=== PATIENT | female | born 1940 | race Caucasian/White ===

== ENCOUNTER 2017-04-15 16:47 | Inpatient (IN) | payer MEDICAID, OTHER ==
[2017-04-15] VITALS (9 sets, daily range): BP systolic 99–115; BP diastolic 54–63; PULSE 92–109; RESP 18–36; TEMP 98.1–98.9; O2SAT 78–100
[~2017-04-15] VITALS: Ht 152.4 cm; Wt 40.9 kg
[2017-04-15] MEDS ORDERED: methylPREDNISolone SOD SUCC 125 MG/2 ML VIAL IV PUSH ONE (17:00)
[2017-04-15] MEDS: RESP: ALBUTEROL 2.5 MG/IPRATROPIUM 0.5 MG NEB (SCH) INH ×2 (17:07→21:00)
[2017-04-15 17:31] LABS: AUTOMATED NEUTROPHIL # 13.2 TH/MM3 (1.8-7.7); BASOPHIL % 0.1 % (0.0-2.0); HEMATOCRIT 39.2 % (35.0-46.0); HEMO FLAGS DIFF FINAL; LYMPH % 2.4 % (9.0-44.0); LYMPHOCYTE # 0.3 TH/MM3 (1.0-4.8); MEAN CELL VOLUME 96.3 FL (80.0-100.0); MEAN CORPUSCULAR HEMOGLOBIN 31.5 PG (27.0-34.0); MEAN CORPUSCULAR HGB CONC 32.7 % (32.0-36.0); MONO % 2.2 % (0.0-8.0); NEUT % 95.3 % (16.0-70.0); PLATELET COUNT 129 TH/MM3 (150-450); RED BLOOD COUNT 4.07 MIL/MM3 (4.00-5.30); RED CELL DISTRIBUTION WIDTH 13.7 % (11.6-17.2); WHITE BLOOD COUNT 13.9 TH/MM3 (4.0-11.0)
--- NOTE | 2017-04-15 17:48 | PD ---
HPI Chief Complaint: Respiratory Symptoms Time Seen by Provider: 17:25 Travel History International Travel<30 days: No Contact w/Intl Traveler<30days: No Traveled to known affect area: No History of Present Illness HPI 76-year-old female presents to the emergency department for evaluation of acute onset shortness of breath. Patient was discharged from [facility] today. She was admitted to [facility] for treatment for pneumonia. While driving home from the hospital patient became very short of breath. Patient was on her usual continuous oxygen at 2 L during the sudden onset of dyspnea. Upon arrival to the emergency department patient needed help to be removed from the back seat of the vehicle. Patient was rushed into a medical room for expedited treatment. Patient is Trinidadian speaking. Another Trinidadian speaking health plant health care technician was used as an b2b sales manager. Patient has history of pulmonary fibrosis and is on 2 L of oxygen continuously. PFSH Past Medical History Cardiovascular Problems: Yes Diminished Hearing: No Gastrointestinal Disorders: Yes (GASTRITIS) Hypertension: Yes Respiratory: Yes (PULMONARY FIBROSIS) Pneumonia: Yes Past Surgical History Surgical History: No Previous Surgery Social History Alcohol Use: No Tobacco Use: No Substance Use: No Allergies-Medications (Allergen,Severity, Reaction): Coded Allergies: Iodinated Contrast- Oral and IV Dye (Verified Allergy, Unknown, 04/15/17) Reported Meds & Prescriptions Reported Meds & Active Scripts Active Reported Mycophenolate (Mycophenolate Mofetil) 500 Mg Tab 500 Mg PO BID Amlodipine (Amlodipine Besylate) 5 Mg Tab 5 Mg PO DAILY Prednisone 20 Mg Tab 40 Mg PO DAILY Take 40 mg (2 tablets) daily for 5 days Mirtazapine 15 Mg Tab 15 Mg PO HS Mucus Relief ER (Guaifenesin) 600 Mg Tab 600 Mg PO BID Acetazolamide 250 Mg Tab 250 Mg PO DAILY Percocet (Oxycodone-Acetaminophen) 5-325 mg Tab 1 Tab PO Q6H PRN Omeprazole 40 Mg Cap 40 Mg PO BID Review of Systems ROS Limitations: Language Barrier Except as stated in HPI: all other systems reviewed are Neg Physical Exam Narrative GENERAL: Ill appearing 76 year old female with ashen skin and labored breathing. Patient able to speak, but she is Trinidadian-speaking. Another healthcare professional was utilized as an b2b sales manager. SKIN: Focused skin assessment cool/dry. HEAD: Atraumatic. Normocephalic. EYES: Pupils equal and round. No scleral icterus. No injection or drainage. ENT: No nasal bleeding or discharge. Mucous membranes pink and moist. NECK: Trachea midline. No JVD. CARDIOVASCULAR: Regular rate and rhythm. No murmur appreciated. RESPIRATORY: Accessory muscle use noted. Course lung sounds throughout bilateral lobes noted. Breath sounds equal bilaterally. GASTROINTESTINAL: Abdomen soft, non-tender, nondistended. Hepatic and splenic margins not palpable. MUSCULOSKELETAL: No obvious deformities. No clubbing. No cyanosis. No edema. NEUROLOGICAL: Awake and alert. No obvious cranial nerve deficits. Motor grossly within normal limits. Normal speech. Data Data Last Documented VS Vital Signs Date Time Temp Pulse Resp B/P (MAP) Pulse Ox O2 Delivery O2 Flow Rate FiO2 04/15/17 19:28 102 18 105/58 (74) 97 Nasal Cannula 2.00 04/15/17 16:50 98.9 Orders Orders Complete Blood Count With Diff (04/15/17 16:49) Basic Metabolic Panel (Bmp) (04/15/17 16:49) Act Partial Throm Time (Ptt) (04/15/17 16:49) Prothrombin Time / Inr (Pt) (04/15/17 16:49) Magnesium (Mg) (04/15/17 16:49) Ckmb (Isoenzyme) Profile (04/15/17 16:49) Troponin I (04/15/17 16:49) Urinalysis - C+S If Indicated (04/15/17 16:49) Blood Culture (04/15/17 16:49) Iv Access Insert/Monitor (04/15/17 16:49) Electrocardiogram (04/15/17 16:49) Ecg Monitoring (04/15/17 16:49) Oximetry (04/15/17 16:49) Oxygen Administration (04/15/17 16:49) Chest, Single Ap (04/15/17 16:49) Methylprednisolone So Succ Inj (Solumedr (04/15/17 17:00) Albuterol-Ipratropium Neb (Duoneb Neb) (04/15/17 17:00) Lactic Acid (04/15/17 16:51) Arterial Blood Gas (Abg) (04/15/17 ) Hepatic Functional Panel (04/15/17 17:05) Lipase (04/15/17 17:05) Cefepime Inj (Maxipime Inj) (04/15/17 18:30) Azithromycin Inj (Zithromax Inj) (04/15/17 18:30) Admit Order (Ed Use Only) (04/15/17 19:55) Labs Laboratory Tests Test 04/15/17 00:00 04/15/17 17:05 Blood Gas Puncture Site RT RADIAL Blood Gas Patient Temperature 98.6 Blood Gas HCO3 34 mmol/L Blood Gas Base Excess 9.2 mmol/L Blood Gas Oxygen Saturation 79 % Arterial Blood pH 7.41 Arterial Blood Partial Pressure CO2 54 mmHg Arterial Blood Partial Pressure O2 44 mmHG Arterial Blood Oxygen Content 14.1 Vol % Arterial Blood Carboxyhemoglobin 1.7 % Arterial Blood Methemoglobin 0.6 % Blood Gas Hemoglobin 12.6 G/DL Oxygen Delivery Device NASAL CANNULA Blood Gas Liter Flow 4 L/M White Blood Count 13.9 TH/MM3 Red Blood Count 4.07 MIL/MM3 Hemoglobin 12.8 GM/DL Hematocrit 39.2 % Mean Corpuscular Volume 96.3 FL Mean Corpuscular Hemoglobin 31.5 PG Mean Corpuscular Hemoglobin Concent 32.7 % Red Cell Distribution Width 13.7 % Platelet Count 129 TH/MM3 Mean Platelet Volume 9.7 FL Neutrophils (%) (Auto) 95.3 % Lymphocytes (%) (Auto) 2.4 % Monocytes (%) (Auto) 2.2 % Eosinophils (%) (Auto) 0.0 % Basophils (%) (Auto) 0.1 % Neutrophils # (Auto) 13.2 TH/MM3 Lymphocytes # (Auto) 0.3 TH/MM3 Monocytes # (Auto) 0.3 TH/MM3 Eosinophils # (Auto) 0.0 TH/MM3 Basophils # (Auto) 0.0 TH/MM3 CBC Comment DIFF FINAL Differential Comment Prothrombin Time 11.4 SEC Prothromb Time International Ratio 1.0 RATIO Activated Partial Thromboplast Time 20.9 SEC Blood Urea Nitrogen 15 MG/DL Creatinine 0.43 MG/DL Random Glucose 202 MG/DL Total Protein 6.4 GM/DL Albumin 2.5 GM/DL Calcium Level 8.6 MG/DL Magnesium Level 2.1 MG/DL Alkaline Phosphatase 78 U/L Aspartate Amino Transf (AST/SGOT) 21 U/L Alanine Aminotransferase (ALT/SGPT) 20 U/L Total Bilirubin 0.6 MG/DL Direct Bilirubin 0.2 MG/DL Sodium Level 139 MEQ/L Potassium Level 4.0 MEQ/L Chloride Level 100 MEQ/L Carbon Dioxide Level 35.2 MEQ/L Anion Gap 4 MEQ/L Estimat Glomerular Filtration Rate 143 ML/MIN Lactic Acid Level 1.5 mmol/L Indirect Bilirubin 0.4 MG/DL Total Creatine Kinase 45 U/L Troponin I 0.02 NG/ML Lipase 37 U/L MDM Medical Decision Making Medical Screen Exam Complete: Yes Emergency Medical Condition: Yes Medical Record Reviewed: Yes Differential Diagnosis Differential diagnoses include but are not limited to pneumonia, sepsis, PE, flash pulmonary edema, CHF, coronary event, pneumothorax Narrative Course 76-year-old female presents to the emergency department for evaluation of acute sudden onset of shortness of breath. The episode occurred when she was driving home from the hospital in [place] after being discharged. Patient was discharged after being treated for pneumonia. Patient has history of pulmonary fibrosis and is on 2 L of oxygen continuously. CBC, BMP, PT/INR, magnesium, troponin, CK, UA, blood cultures, lactic acid, chest x-ray, EKG, ABG ordered and pending. CBC shows leukocytosis at 13.9 BMP shows carbon dioxide elevated at 35.2 PT/INR APTT low at 20.9 otherwise shows no acute abnormalities MAG within normal limits at 2.1 TROP 0.02 CK is 45 BLOOD CULTURES ordered and pending LACTIC ACID within normal limits at 1.5 CXR shows diffuse interstitial opacity with differential diagnosis of chronic interstitial lung disease and pulmonary edema. Superimposed left lower lung consolidation and small left pleural effusion. EKG shows sinus rhythm with short AZ interval with frequent ventricular premature complexes heart rate 87 ABG shows extremely low oxygen saturation at 79, PcO2 54, PO2 44 Based on patient's symptoms, clinical presentation, vital signs review, laboratory results and chest x-ray it is necessary to admit the patient to the hospital for further evaluation and workup. Patient will be admitted to the intensive care unit. Dr. Moreau accepted patient. Patient will be admitted to intensive care. Sepsis Criteria SIRS Criteria (2 or more): Heart rate over 90, RR > 20 or PaCO2 < 32, WBC > 83976, < 4000 or > 10% bands Sepsis Criteria (SIRS+source): Infect source susp/known Diagnosis Primary Impression: Pneumonia Qualified Codes: J18.1 - Lobar pneumonia, unspecified organism Additional Impressions: Pulmonary edema Qualified Codes: J81.0 - Acute pulmonary edema Hypoxemia Admitting Information Admitting Physician Requests: Admit Miguelina Kruger [employer] Apr 15, 2017 17:47
[2017-04-15 17:49] LABS: APTT (PATIENT) 20.9 SEC (24.3-30.1); PROTHROMBIN TIME - PATIENT 11.4 SEC (9.8-11.6)
[2017-04-15 17:50] LABS: BICARBONATE 35.2 MEQ/L (21.0-32.0); MAGNESIUM 2.1 MG/DL (1.5-2.5)
[2017-04-15 17:53] LABS: INDIRECT BILIRUBIN 0.4 MG/DL (0.0-0.8); TOTAL BILIRUBIN ADULT 0.6 MG/DL (0.2-1.0)
[2017-04-15 17:58] LABS: BLOOD GAS BASE EXCESS 9.2 mmol/L (-2-2); BLOOD GAS CARBOXYHEMOGLOBIN 1.7 % (0-4); BLOOD GAS HCO3 34 mmol/L (22-26); BLOOD GAS METHEMOGLOBIN 0.6 % (0-2); BLOOD GAS O2 HGB SATURATION 79 % (90-100); BLOOD GAS OXYGEN CONTENT 14.1 Vol % (12.0-20.0); BLOOD GAS PCO2 54 mmHg (38-42); BLOOD GAS PO2 44 mmHG (61-120); BLOOD GAS TOTAL HGB 12.6 G/DL (12.0-16.0); TEMP CORR TO 98.6
[2017-04-15 17:59] LABS: CRITICAL VALUE YES; DRAW SITE RT RADIAL; LITER FLOW 4 L/M; NUMBER OF ARTERIAL PUNCTURES 1; OXYGEN DEVICE NASAL CANNULA; STAT YES; ULNAR PULSE Y
--- NOTE | 2017-04-15 18:01 | RADRPT ---
EXAM DATE/TIME: 04/15/2017 17:31 [facility] COMPARISON: No previous studies available for comparison. INDICATIONS : Short of breath. MEDICAL HISTORY : Hypertension. Pneumonia, gastritis, pulmonary fibrosis. SURGICAL HISTORY : None. ENCOUNTER: Initial ACUITY: >1 year PAIN SCORE: 5/10 LOCATION: abdomen, superior. FINDINGS: Single AP view of the chest. Moderate severity diffuse bilateral interstitial opacity with peripheral predominance. Medial left lower lobe moderate-sized area of pulmonary consolidation with air broncho grams. Mild cardiac silhouette enlargement. Small left pleural effusion. No evidence of pneumothorax. CONCLUSION: Diffuse interstitial opacity with differential diagnosis of chronic interstitial lung disease and pul monary edema. Superimposed left lower lobe consolidation and small left pleural effusion. Chung Mai MD on April 15, 2017 at 17:59 Board Certified Radiologist. This report was verified electronically.
[2017-04-15] MEDS ORDERED: OMEP40CA2 PO (18:26)
[2017-04-15] MEDS ORDERED: AMLO5TAB2 PO (18:26)
[2017-04-15] MEDS ORDERED: PERC5TAB12 PO (18:26)
[2017-04-15] MEDS ORDERED: ACET250T3 PO (18:26)
[2017-04-15] MEDS ORDERED: GUAI600T11 PO (18:26)
[2017-04-15] MEDS ORDERED: MIRTA15 PO (18:26)
[2017-04-15] MEDS ORDERED: MYCO500T PO (18:26)
[2017-04-15] MEDS ORDERED: PRED20 PO (18:26)
[2017-04-15] MEDS ORDERED: AZITHROMYCIN INJ 500 MG in SODIUM CHLOR 0.9% 250 ML INJ 250 ML IV STA (18:30)
[2017-04-15] MEDS ORDERED: CEFEPIME INJ 2,000 MG in SODIUM CHLORIDE 0.9% INJ 100 ML IV STA (18:30)
[2017-04-15] MEDS ORDERED: BISACODYL 10 MG SUPP RECTAL PRN (20:30)
[2017-04-15] MEDS ORDERED: MISCELLANEOUS NURSING INFORMATION XX SCH (20:30)
[2017-04-15] MEDS ORDERED: LACTULOSE SYRUP 20 GM/30 ML CUP PO PRN (20:30)
[2017-04-15] MEDS ORDERED: MAGNESIUM HYDROXIDE SUSP 30 ML CUP PO PRN (20:30)
[2017-04-15] MEDS ORDERED: Vancomycin Consult Pharmacy 1 EA OTHER SCH (20:30)
[2017-04-15] MEDS ORDERED: ONDANSETRON HCL 4 MG/2 ML VIAL IV PUSH PRN (20:30)
[2017-04-15] MEDS ORDERED: SODIUM CHLORIDE 0.9% FLUSH 10 ML FLUSH PRN (20:30)
[2017-04-15] MEDS ORDERED: SENNOSIDES 8.6 MG TAB PO PRN (20:30)
[2017-04-15] MEDS ORDERED: ACETAMINOPHEN 325 MG TAB PO PRN (20:30)
[2017-04-15] MEDS ORDERED: CHLORHEXIDINE GLUCONATE 2 % 1 PACK (2 CLOTHS) TOP PRN (20:30)
--- NOTE | 2017-04-15 20:30 | HHI.HP ---
HPI Service Critical Care Medicine Primary Care Physician No Primary Care Physician Admission Diagnosis pneumonia, hypoxia Diagnosis: Travel History International Travel<30 Days: No Contact w/Intl Traveler <30 Da: No Traveled to Known Affected Are: No History of Present Illness 76-year-old unfortunate female with history of pulmonary fibrosis for last 4 years on 2 L home oxygen nasal cannula presents for evaluation of acute onset shortness of breath. Patient was discharged from [facility] today. She was admitted to [facility] for treatment off pneumonia. While driving home from the hospital patient became very short of breath. Patient was on her usual continuous oxygen at 2 L during the sudden onset of dyspnea. Upon arrival to the emergency department patient needed help to be removed from the back seat of the vehicle. Patient was rushed into a medical room for expedited treatment. Patient is Eritrean speaking only. Review of Systems Constitutional: COMPLAINS OF: Diaphoretic episodes, Chills, DENIES: Fatigue, Fever, Weight gain, Weight loss, Dizziness, Change in appetite, Night Sweats Endocrine: DENIES: Abnorml menstrual pattern, Heat/cold intolerance, Polydipsia , Polyuria, Polyphagia Eyes: DENIES: Blurred vision, Diplopia, Eye inflammation, Eye pain, Vision loss , Photosensitivity, Double Vision Ears, nose, mouth, throat: DENIES: Tinnitus, Hearing loss, Vertigo, Nasal discharge, Oral lesions, Throat pain, Hoarseness, Ear Pain, Running Nose, Epistaxis, Sinus Pain, Toothache, Odynophagia Respiratory: COMPLAINS OF: Cough, Sputum production, Shortness of breath, DENIES: Apneas, Snoring, Wheezing, Hemoptysis Cardiovascular: DENIES: Chest pain, Palpitations, Syncope, Dyspnea on Exertion , PND, Lower Extremity Edema, Orthopnea, Claudication Gastrointestinal: DENIES: Abdominal pain, Black stools, Bloody stools, Constipation, Diarrhea, Nausea, Vomiting, Difficulty Swallowing, Anorexia Genitourinary: DENIES: Abnormal vaginal bleeding, Dysmenorrhea, Dyspareunia, Sexual dysfunction, Urinary frequency, Urinary incontinence, Urgency, Hematuria , Dysuria, Nocturia, Vaginal discharge Musculoskeletal: DENIES: Joint pain, Muscle aches, Stiffness, Joint Swelling, Back pain, Neck pain Integumentary: DENIES: Abnormal pigmentation, Pruritus, Rash, Nail changes, Breast masses, Breast skin changes, Nipple discharge Hematologic/lymphatic: DENIES: Bruising, Lymphadenopathy Immunologic/allergic: DENIES: Eczema, Urticaria Neurologic: DENIES: Abnormal gait, Headache, Localized weakness, Paresthesias, Seizures, Speech Problems, Tremor, Poor Balance Psychiatric: DENIES: Anxiety, Confusion, Mood changes, Depression, Hallucinations, Agitation, Suicidal Ideation, Homicidal Ideation, Delusions Past Family Social History Allergies: Coded Allergies: Iodinated Contrast- Oral and IV Dye (Verified Allergy, Unknown, 04/15/17) Past Medical History Pulmonary fibrosis Gastritis Hypertension Recent pneumonia Past Surgical History No Previous Surgery Reported Medications Reported Meds & Active Scripts Active Reported Mycophenolate (Mycophenolate Mofetil) 500 Mg Tab 500 Mg PO BID Amlodipine (Amlodipine Besylate) 5 Mg Tab 5 Mg PO DAILY Prednisone 20 Mg Tab 40 Mg PO DAILY Take 40 mg (2 tablets) daily for 5 days Mirtazapine 15 Mg Tab 15 Mg PO HS Mucus Relief ER (Guaifenesin) 600 Mg Tab 600 Mg PO BID Acetazolamide 250 Mg Tab 250 Mg PO DAILY Percocet (Oxycodone-Acetaminophen) 5-325 mg Tab 1 Tab PO Q6H PRN Omeprazole 40 Mg Cap 40 Mg PO BID Active Ordered Medications Current Medications Medications (Trade) Dose Ordered Sig/Janes Route PRN Reason Start Time Stop Time Status Last Admin Dose Admin Guaifenesin (Mucinex Er) 600 mg BID PO 04/15/17 21:00 04/15/17 23:00 Mirtazapine (Remeron) 15 mg HS PO 04/15/17 21:00 04/15/17 22:59 Mycophenolate Mofetil (Cellcept) 500 mg BID PO 04/15/17 21:00 Prednisone (Deltasone) 40 mg DAILY PO 04/16/17 09:00 Pantoprazole Sodium (Protonix) 40 mg BID PO 04/15/17 21:30 04/15/17 23:02 Sodium Chloride 1,000 ml @ 84 mls/hr [id number] IV 04/15/17 21:00 04/15/17 22:58 Sodium Chloride (NS Flush) 2 ml UNSCH PRN .XX FLUSH AFTER USING IV ACCESS 04/15/17 20:30 Sodium Chloride (NS Flush) 2 ml BID .XX 04/15/17 21:00 04/15/17 21:00 Acetaminophen (Tylenol) 650 mg Q6H PRN PO PAIN 1-10 AND/OR FEVER >101F 04/15/17 20:30 Oxycodone/ Acetaminophen (Percocet 5-325 Mg) 1 tab Q4H PRN PO PAIN SCALE 1 TO 5 04/15/17 20:30 Morphine Sulfate (Morphine Inj) 2 mg Q2H PRN IV PUSH PAIN SCALE 6 TO 10 04/15/17 20:30 Ondansetron HCl (Zofran Inj) 4 mg Q6H PRN IV PUSH NAUSEA OR VOMITING 04/15/17 20:30 Zolpidem Tartrate (Ambien) 5 mg HS PRN PO INSOMNIA 04/15/17 20:30 Albuterol/ Ipratropium (Duoneb Neb) 1 ampule Q6HR NEB INH 04/15/17 22:00 04/15/17 21:00 Albuterol/ Ipratropium (Duoneb Neb) 1 ampule Q2HR NEB PRN INH WHEEZING 04/15/17 20:30 Heparin Sodium (Porcine) (Heparin Inj) 5,000 units Q8H SQ 04/15/17 22:00 04/15/17 23:00 Miscellaneous Information 1 [id number] XX 04/15/17 20:30 Chlorhexidine Gluconate (Chlorhexidine 2% Cloth) 3 pack Taper DAILY@04 TOP 04/16/17 04:00 04/12/18 03:59 Chlorhexidine Gluconate (Chlorhexidine 2% Cloth) 3 pack UNSCH PRN TOP HYGIENIC CARE 04/15/17 20:30 Senna/Docusate Sodium (Марина-Colace) 1 tab BID PO 04/15/17 21:00 04/15/17 23:00 Magnesium Hydroxide (Milk Of Magnesia Liq) 30 ml Q12H PRN PO MILD - MODERATE CONSTIPATION 04/15/17 20:30 Sennosides (Senokot) 17.2 mg Q12H PRN PO MODERATE - SEVERE CONSTIPATION 04/15/17 20:30 Bisacodyl (Dulcolax Supp) 10 mg DAILY PRN RECTAL SEVERE CONSITIPATION 04/15/17 20:30 Lactulose (Lactulose Liq) 30 ml DAILY PRN PO SEVERE CONSITIPATION 04/15/17 20:30 Piperacillin Sod/ Tazobactam Sod 100 ml @ 200 mls/hr Q6H IV 04/15/17 21:00 04/15/17 22:59 Azithromycin 500 mg/Sodium Chloride 250 ml @ 250 mls/hr Q24H IV 04/16/17 20:00 Pharmacy Profile Note 0 ml @ 0 mls/hr UNSCH OTHER 04/15/17 20:30 Social History Alcohol Use: No Tobacco Use: No Substance Use: No Physical Exam Vital Signs Vital Signs Date Time Temp Pulse Resp B/P (MAP) Pulse Ox O2 Delivery O2 Flow Rate FiO2 04/15/17 19:28 102 18 105/58 (74) 97 Nasal Cannula 2.00 04/15/17 17:34 110 24 98 Aerosol Mask 4.00 04/15/17 17:33 105 24 99/63 (75) 98 Aerosol Mask 4.00 04/15/17 17:18 99 Aerosol Mask 4.00 04/15/17 17:18 99 Aerosol Mask 4.00 04/15/17 16:50 98.9 92 24 112/61 (78) 100 Laboratory Laboratory Tests Test 04/15/17 00:00 04/15/17 17:05 Blood Gas Puncture Site RT RADIAL Blood Gas Patient Temperature 98.6 Blood Gas HCO3 34 Blood Gas Base Excess 9.2 Blood Gas Oxygen Saturation 79 Arterial Blood pH 7.41 Arterial Blood Partial Pressure CO2 54 Arterial Blood Partial Pressure O2 44 Arterial Blood Oxygen Content 14.1 Arterial Blood Carboxyhemoglobin 1.7 Arterial Blood Methemoglobin 0.6 Blood Gas Hemoglobin 12.6 Oxygen Delivery Device NASAL CANNULA Blood Gas Liter Flow 4 White Blood Count 13.9 Red Blood Count 4.07 Hemoglobin 12.8 Hematocrit 39.2 Mean Corpuscular Volume 96.3 Mean Corpuscular Hemoglobin 31.5 Mean Corpuscular Hemoglobin Concent 32.7 Red Cell Distribution Width 13.7 Platelet Count 129 Mean Platelet Volume 9.7 Neutrophils (%) (Auto) 95.3 Lymphocytes (%) (Auto) 2.4 Monocytes (%) (Auto) 2.2 Eosinophils (%) (Auto) 0.0 Basophils (%) (Auto) 0.1 Neutrophils # (Auto) 13.2 Lymphocytes # (Auto) 0.3 Monocytes # (Auto) 0.3 Eosinophils # (Auto) 0.0 Basophils # (Auto) 0.0 CBC Comment DIFF FINAL Differential Comment Prothrombin Time 11.4 Prothromb Time International Ratio 1.0 Activated Partial Thromboplast Time 20.9 Blood Urea Nitrogen 15 Creatinine 0.43 Random Glucose 202 Total Protein 6.4 Albumin 2.5 Calcium Level 8.6 Magnesium Level 2.1 Alkaline Phosphatase 78 Aspartate Amino Transf (AST/SGOT) 21 Alanine Aminotransferase (ALT/SGPT) 20 Total Bilirubin 0.6 Direct Bilirubin 0.2 Sodium Level 139 Potassium Level 4.0 Chloride Level 100 Carbon Dioxide Level 35.2 Anion Gap 4 Estimat Glomerular Filtration Rate 143 Lactic Acid Level 1.5 Indirect Bilirubin 0.4 Total Creatine Kinase 45 Troponin I 0.02 Lipase 37 Date/Time Source Procedure Growth Status 04/15/17 17:10 Blood Peripheral Aerobic Blood Culture Pending Received 04/15/17 17:10 Blood Peripheral Anaerobic Blood Culture Pending Received Result Diagram: 04/15/17 1705 04/15/17 1705 Imaging Last 24 hours Impressions Chest X-Ray 04/15/17 1649 Signed Impressions: Service Date/Time: March 17:31 - CONCLUSION: Diffuse interstitial opacity with differential diagnosis of chronic interstitial lung disease and pulmonary edema. Superimposed left lower lobe consolidation and small left pleural effusion. Chung Mai MD Caprini VTE Risk Assessment Caprini VTE Risk Assessment: Mod/High Risk (score >= 2) Caprini Risk Assessment Model Point Value = 1 Point Value = 2 Point Value = 3 Point Value = 5 Age 41-60 Minor surgery BMI > 25 kg/m2 Swollen legs Varicose veins or History of unexplained or recurrent spontaneous Oral contraceptives or hormone replacement Sepsis (< 1 month) Serious lung disease, including pneumonia (< 1 month) Abnormal pulmonary function Acute myocardial infarction Congestive heart failure (< 1 month) History of inflammatory bowel disease Medical patient at bed rest Age 61-74 Arthroscopic surgery Major open surgery (> 45 min) Laparoscopic surgery (> 45 min) Malignancy Confined to bed (> 72 hours) Immobilizing plaster cast Central venous access Age >= 75 History of VTE Family history of VTE Factor V Leiden Prothrombin [id number] Lupus anticoagulant Anticardiolipin antibodies Elevated serum homocysteine Heparin-induced thrombocytopenia Other congenital or acquired thrombophilia Stroke (< 1 month) Elective arthroplasty Hip, pelvis, or leg fracture Acute spinal cord injury (< 1 month) Prophylaxis Regimen Total Risk Factor Score Risk Level Prophylaxis Regimen 0-1 Low Early ambulation 2 Moderate Order ONE of the following: *Sequential Compression Device (SCD) *Heparin 5000 units SQ BID 3-4 Higher Order ONE of the following medications: *Heparin 5000 units SQ TID *Enoxaparin/Lovenox 40 mg SQ daily (WT < 150 kg, CrCl > 30 mL/min) *Enoxaparin/Lovenox 30 mg SQ daily (WT < 150 kg, CrCl > 10-29 mL/min) *Enoxaparin/Lovenox 30 mg SQ BID (WT < 150 kg, CrCl > 30 mL/min) AND/OR *Sequential Compression Device (SCD) 5 or more Highest Order ONE of the following medications: *Heparin 5000 units SQ TID (Preferred with Epidurals) *Enoxaparin/Lovenox 40 mg SQ daily (WT < 150 kg, CrCl > 30 mL/min) *Enoxaparin/Lovenox 30 mg SQ daily (WT < 150 kg, CrCl > 10-29 mL/min) *Enoxaparin/Lovenox 30 mg SQ BID (WT < 150 kg, CrCl > 30 mL/min) AND *Sequential Compression Device (SCD) Assessment and Plan Assessment and Plan Respiratory failure - Patient is improved on 5 L nasal cannula - Pulmonary fibrosis as a underlying condition - Pneumonia - Broad-spectrum antibiotics - De-escalate per sensitivity - Sputum blood urine cultures and antigens Hypertension - Currently normotensive - Resume home meds DVT GI prophylaxis - Teds SCDs - Subcutaneous heparin - Omeprazole Critical Care: The total critical care time was 35 minutes. Time to perform other separately billable procedures was not included in the critical care time. Jean Moreau MD Apr 15, 2017 8:30 pm
[2017-04-15] MEDS: MYCOPHENOLATE MOFETIL 500 MG TAB PO SCH (21:00)
[2017-04-15] MEDS: SODIUM CHLORIDE 0.9% FLUSH 10 ML FLUSH SCH (21:00)
[2017-04-15] MEDS ORDERED: VANCOMYCIN INJ 1,000 MG in SODIUM CHLOR 0.9% 250 ML INJ 250 ML IV ONE (21:00)
[2017-04-15] MEDS: SODIUM CHLOR 0.9% 1000 ML INJ 1,000 ML IV SCH (22:58)
[2017-04-15] MEDS: PIPERACIL-TAZO 4.5 GM PREMIX 100 ML IV SCH (22:59)
[2017-04-15] MEDS: MIRTAZAPINE 15 MG TAB PO SCH (22:59)
[2017-04-15] MEDS: guaiFENesin E.R. 600 MG TAB PO SCH (23:00)
[2017-04-15] MEDS: DOCUSATE SODIUM 50 MG/SENNA 8.6 MG TAB PO SCH (23:00)
[2017-04-15] MEDS: HEPARIN SODIUM - SQ 10,000 UNITS/ML VIAL SQ SCH (23:00)
[2017-04-15] MEDS: PANTOPRAZOLE SOD 40 MG DELAYED RELEASE TAB PO SCH (23:02)
[2017-04-16] VITALS (17 sets, daily range): BP systolic 94–126; BP diastolic 52–63; PULSE 62–91; RESP 15–53; TEMP 97.9–99; O2SAT 88–100
[2017-04-16] MEDS: RESP: ALBUTEROL 2.5 MG/IPRATROPIUM 0.5 MG NEB (SCH) INH ×4 (03:05→20:04)
[2017-04-16] MEDS: PIPERACIL-TAZO 4.5 GM PREMIX 100 ML IV SCH ×4 (03:22→22:21)
[2017-04-16] MEDS: CHLORHEXIDINE GLUCONATE 2 % 1 PACK (2 CLOTHS) TOP SCH (03:25)
[2017-04-16 05:30] LABS: BLOOD GAS BASE EXCESS 11.2 mmol/L (-2-2); BLOOD GAS HCO3 37 mmol/L (22-26); BLOOD GAS METHEMOGLOBIN 1.1 % (0-2); BLOOD GAS O2 HGB SATURATION 95 % (90-100); BLOOD GAS OXYGEN CONTENT 14.7 Vol % (12.0-20.0); BLOOD GAS PCO2 64 mmHg (38-42); BLOOD GAS PO2 111 mmHg (61-120); BLOOD GAS TOTAL HGB 10.8 G/DL (12.0-16.0); TEMP CORR TO 98.6
[2017-04-16 05:31] LABS: CRITICAL VALUE YES
[2017-04-16 05:32] LABS: DRAW SITE LT RADIAL; LITER FLOW 4 L/M; NUMBER OF ARTERIAL PUNCTURES 1; OXYGEN DEVICE NASAL CANNULA; STAT NO; ULNAR PULSE PRESENT
[2017-04-16 05:36] LABS: AUTOMATED NEUTROPHIL # 10.5 TH/MM3 (1.8-7.7); BASOPHIL % 0.1 % (0.0-2.0); HEMATOCRIT 34.4 % (35.0-46.0); LYMPH % 3.1 % (9.0-44.0); LYMPHOCYTE # 0.3 TH/MM3 (1.0-4.8); MEAN CELL VOLUME 97.2 FL (80.0-100.0); MEAN CORPUSCULAR HEMOGLOBIN 31.9 PG (27.0-34.0); MEAN CORPUSCULAR HGB CONC 32.8 % (32.0-36.0); MONO % 2.5 % (0.0-8.0); NEUT % 94.3 % (16.0-70.0); PLATELET COUNT 99 TH/MM3 (150-450); RED BLOOD COUNT 3.54 MIL/MM3 (4.00-5.30); RED CELL DISTRIBUTION WIDTH 13.8 % (11.6-17.2); WHITE BLOOD COUNT 11.1 TH/MM3 (4.0-11.0)
--- NOTE | 2017-04-16 05:43 | RADRPT ---
EXAM DATE/TIME: 04/16/2017 04:18 [facility] COMPARISON: CHEST SINGLE AP, April 15, 2017, 17:31. INDICATIONS : Evaluate for respiratory failure. MEDICAL HISTORY : Hypertension. Pneumonia, gastritis, pulmonary fibrosis. SURGICAL HISTORY : None. ENCOUNTER: Subsequent ACUITY: 2 days PAIN SCORE: Non-responsive. LOCATION: chest FINDINGS: There is a severe pulmonary fibrosis pattern. No new airspace disease compared with April 15. The re is some basilar consolidation with air bronchograms. No bronchiectasis. Cardiomegaly. CONCLUSION: 1. Severe pulmonary fibrosis with some basilar airspace disease similar to April 15. Yandel Roberts MD on April 16, 2017 at 5:40 Board Certified Radiologist. This report was verified electronically.
[2017-04-16 05:55] LABS: HEMO FLAGS AUTO DIFF
[2017-04-16 05:57] LABS: ALT (GPT) 15 U/L (10-53); ANION GAP 5 MEQ/L (5-15); AST (GOT) 18 U/L (15-37); BICARBONATE 35.3 MEQ/L (21.0-32.0); BLOOD UREA NITROGEN 12 MG/DL (7-18); CHLORIDE 101 MEQ/L (98-107); GLOMERULAR FILTRATION RATE 165 ML/MIN (>89); MAGNESIUM 2.2 MG/DL (1.5-2.5); POTASSIUM 3.4 MEQ/L (3.5-5.1); SODIUM (NA) 141 MEQ/L (136-145)
[2017-04-16 06:02] LABS: ALKALINE PHOSPHATASE 67 U/L (45-117); TOTAL BILIRUBIN ADULT 0.8 MG/DL (0.2-1.0)
[2017-04-16] MEDS: HEPARIN SODIUM - SQ 10,000 UNITS/ML VIAL SQ SCH ×3 (06:23→22:20)
[2017-04-16] MEDS ORDERED: predniSONE 20 MG TAB PO SCH (09:00)
[2017-04-16] MEDS: oxyCODONE/ACETAMINOPHEN 5 MG/325 MG TAB PO PRN (09:56)
[2017-04-16] MEDS: PANTOPRAZOLE SOD 40 MG DELAYED RELEASE TAB PO SCH ×2 (09:56→20:42)
[2017-04-16] MEDS: amLODIPine BESYLATE 5 MG TAB PO SCH (09:57)
[2017-04-16] MEDS: SODIUM CHLORIDE 0.9% FLUSH 10 ML FLUSH SCH ×2 (09:57→21:00)
[2017-04-16] MEDS: DOCUSATE SODIUM 50 MG/SENNA 8.6 MG TAB PO SCH ×2 (09:57→20:41)
[2017-04-16] MEDS: guaiFENesin E.R. 600 MG TAB PO SCH ×2 (09:57→20:42)
[2017-04-16] MEDS: MYCOPHENOLATE MOFETIL 500 MG TAB PO SCH ×2 (09:57→20:41)
[2017-04-16 10:33] LABS: PLATELET ESTIMATE SMEAR LOW (NORMAL); PLATELET MORPHOLOGY NORMAL (NORMAL); SCAN/DIFF AUTO DIFF CONFIRMED
--- NOTE | 2017-04-16 10:35 | EKG ---
Date Performed: 04/15/2017 Time Performed: 17:15:01 PTAGE: 76 years EKG: Sinus rhythm WITH FREQUENT VENTRICULAR PREMATURE COMPLEXES POSSIBLE LEFT ATRIAL ENLARGEMENT LOW QRS VOLTAGE IN MN ECORDIAL LEADS ABNORMAL RHYTHM ECG NO PREVIOUS TRACING DOCTOR: Juno Cabral Interpretating Date/Time 04/16/2017 10:34:14
[2017-04-16] MEDS: acetaZOLAMIDE 250 MG TAB PO SCH (11:12)
[2017-04-16] MEDS: VANCOMYCIN INJ 1,500 MG in SODIUM CHLORID 0.9% 500 ML INJ 500 ML IV SCH (11:13)
[2017-04-16 13:16] LABS: BLOOD GAS BASE EXCESS 11.1 mmol/L (-2-2); BLOOD GAS HCO3 36 mmol/L (22-26); BLOOD GAS METHEMOGLOBIN 1.1 % (0-2); BLOOD GAS O2 HGB SATURATION 83 % (90-100); BLOOD GAS OXYGEN CONTENT 14.2 Vol % (12.0-20.0); BLOOD GAS PCO2 61 mmHg (38-42); BLOOD GAS PO2 52 mmHg (61-120); BLOOD GAS TOTAL HGB 12.1 G/DL (12.0-16.0); TEMP CORR TO 98.6
[2017-04-16 13:21] LABS: CRITICAL VALUE YES; DRAW SITE LT RADIAL; FIO2 50 %; LITER FLOW 6 L/M; NUMBER OF ARTERIAL PUNCTURES 2; OXYGEN DEVICE Venti Mask; STAT NO; ULNAR PULSE PRESENT
[2017-04-16] MEDS: methylPREDNISolone SOD SUCC 40 MG/1 ML VIAL IV PUSH SCH ×2 (14:38→22:21)
--- NOTE | 2017-04-16 15:21 | HHI.CCPN ---
Subjective Remarks/Hospital Course 04/15: 76-year-old unfortunate female with history of pulmonary fibrosis for last 4 years on 2 L home oxygen nasal cannula presents for evaluation of acute onset shortness of breath. Patient was discharged from [facility] today. She was admitted to [facility] for treatment off pneumonia. While driving home from the hospital patient became very short of breath. Patient was on her usual continuous oxygen at 2 L during the sudden onset of dyspnea. Upon arrival to the emergency department patient needed help to be removed from the back seat of the vehicle. Patient was rushed into a medical room for expedited treatment. Patient is Peruvian speaking only. 04/16: Resting in bed on nasal cannula 5-10 L/m. Breathing slightly labored Objective Vital Signs Date Time Temp Pulse Resp B/P (MAP) Pulse Ox O2 Delivery O2 Flow Rate FiO2 04/16/17 14:42 94 40 04/16/17 07:52 Nasal Cannula 4.00 04/16/17 06:00 72 04/16/17 04:00 97.9 32 106/58 (74) Intake and Output 04/16/17 04/16/17 04/17/17 08:00 16:00 00:00 Intake Total 1193 ml Balance 1193 ml Result Diagram: 04/16/17 0426 04/16/17 0426 Other Results Laboratory Tests Test 04/16/17 05:10 04/16/17 13:11 Blood Gas Puncture Site LT RADIAL LT RADIAL Blood Gas Patient Temperature 98.6 98.6 Blood Gas HCO3 37 mmol/L (22-26) 36 mmol/L (22-26) Blood Gas Base Excess 11.2 mmol/L (-2-2) 11.1 mmol/L (-2-2) Blood Gas Oxygen Saturation 95 % (90-100) 83 % (90-100) Arterial Blood pH 7.38 (7.380-7.420) 7.40 (7.380-7.420) Arterial Blood Partial Pressure CO2 64 mmHg (38-42) 61 mmHg (38-42) Arterial Blood Partial Pressure O2 111 mmHg (61-120) 52 mmHg (61-120) Arterial Blood Oxygen Content 14.7 Vol % (12.0-20.0) 14.2 Vol % (12.0-20.0) Arterial Blood Carboxyhemoglobin 2.0 % (0-4) 2.0 % (0-4) Arterial Blood Methemoglobin 1.1 % (0-2) 1.1 % (0-2) Blood Gas Hemoglobin 10.8 G/DL (12.0-16.0) 12.1 G/DL (12.0-16.0) Oxygen Delivery Device NASAL CANNULA Venti Mask Blood Gas Liter Flow 4 L/M 6 L/M Blood Gas Inspired Oxygen 50 % Imaging Last 24 hours Impressions Chest X-Ray 04/15/17 1649 Signed Impressions: Service Date/Time: March 17:31 - CONCLUSION: Diffuse interstitial opacity with differential diagnosis of chronic interstitial lung disease and pulmonary edema. Superimposed left lower lobe consolidation and small left pleural effusion. Chung Mai MD Objective Remarks HEENT/Neuro: No icterus, pallor present tongue moist, JASPAL, Awake alert oriented 3, nonfocal grossly, moving all 4 extremities Neck: No JVD Chest/pulmonary: Good air entry bilaterally, scattered rhonchi and crackles, no wheezing Cardiovascular: S1-S2 regular no gallop or murmur GI/abdomen: Soft, nontender, bowel sounds present Extremities: Warm bilaterally, no edema A/P Assessment and Plan Respiratory failure - Patient remains on 5-10 L nasal cannula - Pulmonary fibrosis as a underlying condition. Continue steroids and bronchodilators - Pneumonia - Broad-spectrum antibiotics. On is azithromycin/Zosyn/vancomycin IV - De-escalate per sensitivity - Sputum blood urine cultures and antigens - Consulted pulmonary for further evaluation Hypertension - Currently normotensive - Resume home meds DVT GI prophylaxis - Teds SCDs - Subcutaneous heparin - Omeprazole Pablito Shearer MD Apr 16, 2017 15:21
--- NOTE | 2017-04-16 16:31 | RADRPT ---
EXAM DATE/TIME: 04/16/2017 16:15 [place] COMPARISON: No previous studies available for comparison. INDICATIONS : Shortness of breath. RADIATION DOSE: 2.9 CTDIvol (mGy) MEDICAL HISTORY : Cardiovascular disease. Hypertension. SURGICAL HISTORY : None. ENCOUNTER: Initial ACUITY: 1 day PAIN SCALE: 0/10 LOCATION: Bilateral chest TECHNIQUE: Volumetric scanning of the chest was performed. Using automated exposure control and adjustment of t he mA and/or kV according to patient size, radiation dose was kept as low as reasonably achievable to obtain optimal diagnostic quality images. DICOM format image data is available electronically for r eview and comparison. Follow-up recommendations for detected pulmonary nodules are based at a minimum on nodule size and pa tient risk factors according to Fleischner Society Guidelines. FINDINGS: LUNGS: Diffuse lower lobe predominant groundglass opacities, intralobular septal thickening and honeycombing in the lower lobes with significant traction bronchiectasis. PLEURAE: There is no pleural thickening or pleural effusion. MEDIASTINUM: Heart is grossly unremarkable. Main pulmonary arteries mildly prominent measuring up to 3.3 cm. No si gnificant pericardial effusion or adenopathy. AXILLAE: Within normal limits. No lymphadenopathy. MUSCULOSKELETAL: Within normal limits for patient age. MISCELLANEOUS: The visualized upper abdominal organs demonstrate no acute abnormality. CONCLUSION: 1. Lower lobe predominant advanced interstitial lung disease and fibrosis with traction bronchiectasi s consistent with UIP. 2. No significant pneumothorax or effusion. Ray Mcneil MD on April 16, 2017 at 16:24 Board Certified Radiologist. This report was verified electronically.
--- NOTE | 2017-04-16 17:48 | PD.CONS ---
Consult Service Palliative Care Consult Requested By Dr. Shearer . Primary Care Physician No Primary Care Physician . Reason for Consultation a. To assist with evaluation and management of symptoms including: Dyspnea, anxiety b. To assist medical decision maker(s) with: better understanding of current medical conditions; weighing benefits/burdens of medical treatment options; making medical treatment decisions. . 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 This 76-year-old Swedish-speaking female, with a history of anxiety and hypertension, was diagnosed with pulmonary fibrosis a couple years ago. She has been gradually worsening, and was hospitalized for 2 weeks in [place], being discharged just one day prior to this hospitalization. The family reports that the patient has pneumonia and was getting better when she was discharged, but even on her oxygen at home was getting more dyspneic, and they decided to come to this hospital. She has not had chest pain and does not know of any fever. In the emergency department, findings included: * Moderate dyspnea * Temp 98.9, pulse 102, respirations 18, blood pressure 105/58, oxygen saturation 97% on 2 L after some treatment was completed * White count 13.9 * Sodium 139, creatinine 0.43 * Chest x-ray with diffuse changes consistent with fibrosis, and also left lower lung consolidation * PCO2 54, PO2 44 The patient was admitted and additional treatment was begun. She was seen by the detail supervisor to offered some additional treatment orders. The patient has just completed a CT scan of the chest today, the results are not yet available. Palliative Care was consulted to assist with symptom management, and to enter into discussions with the patient and her family regarding her illnesses, the current problems, the prognosis, and the benefits and burdens of the various treatment choices. . Function/Cognitive Trajectory Because of the patient's severe dyspnea, she was very limited in what she can do physically. She has remained alert and oriented according to the family, but she could take only a couple steps because of the dyspnea. Various family members were helping to care for her. . Review of Systems Constitutional: COMPLAINS OF: Fatigue, DENIES: Fever Endocrine: DENIES: Polyuria Eyes: DENIES: Eye inflammation Ears, nose, mouth, throat: DENIES: Epistaxis Respiratory: COMPLAINS OF: Cough, Shortness of breath Cardiovascular: COMPLAINS OF: Dyspnea on Exertion, DENIES: Chest pain, Syncope , Lower Extremity Edema Gastrointestinal: DENIES: Bloody stools, Diarrhea, Vomiting blood Genitourinary: DENIES: Hematuria Musculoskeletal: DENIES: Joint pain Integumentary: DENIES: Rash Hematologic/Lymphatics: DENIES: Lymphadenopathy Immunologic/Allergic: DENIES: Urticaria Neurologic: DENIES: Localized weakness, Seizures Psychiatric: COMPLAINS OF: Anxiety ("panic attacks"), DENIES: Confusion, Agitation Past Family Social History Coded Allergies: Iodinated Contrast- Oral and IV Dye (Verified Allergy, Unknown, 04/15/17) Past Medical History * Hypoxic respiratory failure * Pulmonary fibrosis * Pneumonia * Anxiety, history of panic attacks * Hypertension * Gastritis . Past Surgical History No surgeries . Reported Medications Reported Meds & Active Scripts Active Reported Mycophenolate (Mycophenolate Mofetil) 500 Mg Tab 500 Mg PO BID Amlodipine (Amlodipine Besylate) 5 Mg Tab 5 Mg PO DAILY Prednisone 20 Mg Tab 40 Mg PO DAILY Take 40 mg (2 tablets) daily for 5 days Mirtazapine 15 Mg Tab 15 Mg PO HS Mucus Relief ER (Guaifenesin) 600 Mg Tab 600 Mg PO BID Acetazolamide 250 Mg Tab 250 Mg PO DAILY Percocet (Oxycodone-Acetaminophen) 5-325 mg Tab 1 Tab PO Q6H PRN Omeprazole 40 Mg Cap 40 Mg PO BID . Current Medications Medications (Trade) Dose Ordered Sig/Janes Route Start Time Stop Time Status Last Admin (Mucinex Er) 600 mg BID PO 04/15/17 21:00 04/16/17 09:57 (Remeron) 15 mg HS PO 04/15/17 21:00 04/15/17 22:59 (Cellcept) 500 mg BID PO 04/15/17 21:00 04/16/17 09:57 (Protonix) 40 mg BID PO 04/15/17 21:30 04/16/17 09:56 Sodium Chloride 1,000 ml @ 84 mls/hr [id number] IV 04/15/17 21:00 04/15/17 22:58 (NS Flush) 2 ml UNSCH PRN .XX 04/15/17 20:30 (NS Flush) 2 ml BID .XX 04/15/17 21:00 04/16/17 09:57 (Tylenol) 650 mg Q6H PRN PO 04/15/17 20:30 (Percocet 5-325 Mg) 1 tab Q4H PRN PO 04/15/17 20:30 04/16/17 09:56 (Morphine Inj) 2 mg Q2H PRN IV PUSH 04/15/17 20:30 (Zofran Inj) 4 mg Q6H PRN IV PUSH 04/15/17 20:30 (Ambien) 5 mg HS PRN PO 04/15/17 20:30 (Duoneb Neb) 1 ampule Q6HR NEB INH 04/15/17 22:00 04/16/17 15:34 (Duoneb Neb) 1 ampule Q2HR NEB PRN INH 04/15/17 20:30 (Heparin Inj) 5,000 units Q8H SQ 04/15/17 22:00 04/16/17 14:30 Miscellaneous Information 1 Q361D XX 04/15/17 20:30 (Chlorhexidine 2% Cloth) 3 pack Taper DAILY@04 TOP 04/16/17 04:00 04/12/18 03:59 04/16/17 03:25 (Chlorhexidine 2% Cloth) 3 pack UNSCH PRN TOP 04/15/17 20:30 (Марина-Colace) 1 tab BID PO 04/15/17 21:00 04/16/17 09:57 (Milk Of Magnesia Liq) 30 ml Q12H PRN PO 04/15/17 20:30 (Senokot) 17.2 mg Q12H PRN PO 04/15/17 20:30 (Dulcolax Supp) 10 mg DAILY PRN RECTAL 04/15/17 20:30 (Lactulose Liq) 30 ml DAILY PRN PO 04/15/17 20:30 Piperacillin Sod/ Tazobactam Sod 100 ml @ 200 mls/hr Q6H IV 04/15/17 21:00 04/16/17 09:57 Azithromycin 500 mg/Sodium Chloride 250 ml @ 250 mls/hr Q24H IV 04/16/17 20:00 Pharmacy Profile Note 0 ml @ 0 mls/hr UNSCH OTHER 04/15/17 20:30 (Diamox) 250 mg DAILY PO 04/16/17 09:00 04/16/17 11:12 (Norvasc) 5 mg DAILY PO 04/16/17 09:00 04/16/17 09:57 Vancomycin HCl 1500 mg/Sodium Chloride 515 ml @ 257.5 mls/ hr Q18H IV 04/16/17 11:00 04/16/17 11:13 Miscellaneous Information SPECIFIC LAB TO BE [facility]CKAYLA... ONCE ONCE .XX 04/17/17 22:45 04/17/17 22:46 (SoluMEDROL INJ) 40 mg Q8HR IV PUSH 04/16/17 14:15 04/16/17 14:38 Family History + heart disease, parents of "age" . Substance Use Tobacco: None Alcohol: None Prescription med abuse: None Illicits: None . Psychosocial History The patient was born in [place], and his lived in [place] for the past 5 years or so. She is , but for at least a couple years. She has 4 children who live in the area, and a grandson. . Spiritual/Cultural Factors Evaluation pending . Living Will: Never completed Health Care Surrogate: Never completed Durable Power of Mail Agent: Never completed Health Care Surrogate(s): At the time of this consultation, the patient Celexa her daughter Adriana Tom as her healthcare surrogate. . Today's verbally stated goals: The patient answered a few questions, but then requested that I have any further discussion with Adriana; she does not want to participate in the goals of care discussion. . Family/friends goals: The family does not want the patient intubated on the ventilator. They want all other care up to that point. . Ethical and Legal Issues There are no ethical issues that would impact her care or decision-making at this time. The patient has capacity for decision-making, but she is deferring discussions about goals of care to her daughter Adriana and her other children. . Physical Exam Vital Signs Date Time Temp Pulse Resp B/P (MAP) Pulse Ox O2 Delivery O2 Flow Rate FiO2 04/16/17 14:42 94 40 04/16/17 07:52 100 Nasal Cannula 4.00 04/16/17 06:00 72 04/16/17 04:00 73 04/16/17 04:00 97.9 73 32 106/58 (74) 98 04/16/17 02:00 85 04/16/17 00:00 98.2 91 21 111/63 (79) 99 04/16/17 00:00 91 04/15/17 22:04 93 Nasal Cannula 5.00 04/15/17 22:00 102 04/15/17 21:55 98.1 109 36 110/54 (72) 78 04/15/17 21:27 04/15/17 21:03 100 Nasal Cannula 5.00 04/15/17 20:32 106 18 115/60 (78) 96 Nasal Cannula 5.00 04/15/17 19:28 102 18 105/58 (74) 97 Nasal Cannula 5.00 04/16/17 04/17/17 19:00 07:00 Intake Total 993 ml Balance 993 ml IV Total 993 ml Exam CONSTITUTIONAL/GENERAL: This is an elderly, weak patient, in mild respiratory distress. TUBES/LINES/DRAINS: Nonrebreather, IV SKIN: No jaundice, rashes, or lesions. Ecchymoses on upper extremities. No wounds seen anteriorly. Skin temperature appropriate. Not diaphoretic. HEAD: Atraumatic. Normocephalic. EYES: Pupils equal and round and reactive. Extraocular motions intact. No scleral icterus. No injection or drainage. Fundi not examined. ENT: Hearing grossly normal. Nose without bleeding or purulent drainage. Throat without visible erythema, exudates, masses, or lesions. NECK: Trachea midline. Supple, nontender. No palpable thyroid enlargement or nodularity. CARDIOVASCULAR: Regular rate and rhythm without murmurs, gallops, or rubs. No JVD. Peripheral pulses symmetric. RESPIRATORY/CHEST: Symmetric, mildly labored respirations. Diminished breath sounds, diffusely scattered rales. GASTROINTESTINAL: Abdomen soft, non-tender, nondistended. No hepato-splenomegaly , or palpable masses. No guarding. Bowel sounds present. GENITOURINARY: Without palpable bladder distension. MUSCULOSKELETAL: Extremities without clubbing, cyanosis, or edema. No joint tenderness or effusion noted. No calf tenderness. No mottling or clubbing. LYMPHATICS: No palpable cervical or supraclavicular adenopathy. NEUROLOGICAL: Awake and alert. Motor and sensory grossly within normal limits. Follows commands. Seems to be cognitively sharp. Moves all extremities. PSYCHIATRIC: She gets anxious if I start trying to discuss goals of care (and she wants me only to have that discussion with her family) . Diagnostic Tests Laboratory Laboratory Tests Test 04/15/17 00:00 04/15/17 17:05 04/15/17 21:50 04/15/17 23:02 Blood Gas Puncture Site RT RADIAL Blood Gas Patient Temperature 98.6 Blood Gas HCO3 34 mmol/L (22-26) Blood Gas Base Excess 9.2 mmol/L (-2-2) Blood Gas Oxygen Saturation 79 % (90-100) Arterial Blood pH 7.41 (7.380-7.420) Arterial Blood Partial Pressure CO2 54 mmHg (38-42) Arterial Blood Partial Pressure O2 44 mmHG (61-120) Arterial Blood Oxygen Content 14.1 Vol % (12.0-20.0) Arterial Blood Carboxyhemoglobin 1.7 % (0-4) Arterial Blood Methemoglobin 0.6 % (0-2) Blood Gas Hemoglobin 12.6 G/DL (12.0-16.0) Oxygen Delivery Device NASAL CANNULA Blood Gas Liter Flow 4 L/M White Blood Count 13.9 TH/MM3 (4.0-11.0) Red Blood Count 4.07 MIL/MM3 (4.00-5.30) Hemoglobin 12.8 GM/DL (11.6-15.3) Hematocrit 39.2 % (35.0-46.0) Mean Corpuscular Volume 96.3 FL (80.0-100.0) Mean Corpuscular Hemoglobin 31.5 PG (27.0-34.0) Mean Corpuscular Hemoglobin Concent 32.7 % (32.0-36.0) Red Cell Distribution Width 13.7 % (11.6-17.2) Platelet Count 129 TH/MM3 (150-450) Mean Platelet Volume 9.7 FL (7.0-11.0) Neutrophils (%) (Auto) 95.3 % (16.0-70.0) Lymphocytes (%) (Auto) 2.4 % (9.0-44.0) Monocytes (%) (Auto) 2.2 % (0.0-8.0) Eosinophils (%) (Auto) 0.0 % (0.0-4.0) Basophils (%) (Auto) 0.1 % (0.0-2.0) Neutrophils # (Auto) 13.2 TH/MM3 (1.8-7.7) Lymphocytes # (Auto) 0.3 TH/MM3 (1.0-4.8) Monocytes # (Auto) 0.3 TH/MM3 (0-0.9) Eosinophils # (Auto) 0.0 TH/MM3 (0-0.4) Basophils # (Auto) 0.0 TH/MM3 (0-0.2) CBC Comment DIFF FINAL Differential Comment Prothrombin Time 11.4 SEC (9.8-11.6) Prothromb Time International Ratio 1.0 RATIO Activated Partial Thromboplast Time 20.9 SEC (24.3-30.1) Blood Urea Nitrogen 15 MG/DL (7-18) Creatinine 0.43 MG/DL (0.50-1.00) Random Glucose 202 MG/DL (74-106) Total Protein 6.4 GM/DL (6.4-8.2) Albumin 2.5 GM/DL (3.4-5.0) Calcium Level 8.6 MG/DL (8.5-10.1) Magnesium Level 2.1 MG/DL (1.5-2.5) Alkaline Phosphatase 78 U/L (45-117) Aspartate Amino Transf (AST/SGOT) 21 U/L (15-37) Alanine Aminotransferase (ALT/SGPT) 20 U/L (10-53) Total Bilirubin 0.6 MG/DL (0.2-1.0) Direct Bilirubin 0.2 MG/DL (0.0-0.2) Sodium Level 139 MEQ/L (136-145) Potassium Level 4.0 MEQ/L (3.5-5.1) Chloride Level 100 MEQ/L (98-107) Carbon Dioxide Level 35.2 MEQ/L (21.0-32.0) Anion Gap 4 MEQ/L (5-15) Estimat Glomerular Filtration Rate 143 ML/MIN (>89) Lactic Acid Level 1.5 mmol/L (0.4-2.0) Indirect Bilirubin 0.4 MG/DL (0.0-0.8) Total Creatine Kinase 45 U/L (26-192) Troponin I 0.02 NG/ML (0.02-0.05) 0.02 NG/ML (0.02-0.05) Lipase 37 U/L (73-393) Nasal Screen MRSA (PCR) MRSA NOT DETECTED (NOT Test 04/16/17 04:26 04/16/17 05:10 04/16/17 13:11 White Blood Count 11.1 TH/MM3 (4.0-11.0) Red Blood Count 3.54 MIL/MM3 (4.00-5.30) Hemoglobin 11.3 GM/DL (11.6-15.3) Hematocrit 34.4 % (35.0-46.0) Mean Corpuscular Volume 97.2 FL (80.0-100.0) Mean Corpuscular Hemoglobin 31.9 PG (27.0-34.0) Mean Corpuscular Hemoglobin Concent 32.8 % (32.0-36.0) Red Cell Distribution Width 13.8 % (11.6-17.2) Platelet Count 99 TH/MM3 (150-450) Mean Platelet Volume 8.9 FL (7.0-11.0) Neutrophils (%) (Auto) 94.3 % (16.0-70.0) Lymphocytes (%) (Auto) 3.1 % (9.0-44.0) Monocytes (%) (Auto) 2.5 % (0.0-8.0) Eosinophils (%) (Auto) 0.0 % (0.0-4.0) Basophils (%) (Auto) 0.1 % (0.0-2.0) Neutrophils # (Auto) 10.5 TH/MM3 (1.8-7.7) Lymphocytes # (Auto) 0.3 TH/MM3 (1.0-4.8) Monocytes # (Auto) 0.3 TH/MM3 (0-0.9) Eosinophils # (Auto) 0.0 TH/MM3 (0-0.4) Basophils # (Auto) 0.0 TH/MM3 (0-0.2) CBC Comment AUTO DIFF Differential Comment AUTO DIFF CONFIRMED Platelet Estimate LOW (NORMAL) Platelet Morphology Comment NORMAL (NORMAL) Blood Urea Nitrogen 12 MG/DL (7-18) Creatinine 0.38 MG/DL (0.50-1.00) Random Glucose 217 MG/DL (74-106) Total Protein 5.8 GM/DL (6.4-8.2) Albumin 2.2 GM/DL (3.4-5.0) Calcium Level 7.8 MG/DL (8.5-10.1) Phosphorus Level 2.6 MG/DL (2.5-4.9) Magnesium Level 2.2 MG/DL (1.5-2.5) Alkaline Phosphatase 67 U/L (45-117) Aspartate Amino Transf (AST/SGOT) 18 U/L (15-37) Alanine Aminotransferase (ALT/SGPT) 15 U/L (10-53) Total Bilirubin 0.8 MG/DL (0.2-1.0) Sodium Level 141 MEQ/L (136-145) Potassium Level 3.4 MEQ/L (3.5-5.1) Chloride Level 101 MEQ/L (98-107) Carbon Dioxide Level 35.3 MEQ/L (21.0-32.0) Anion Gap 5 MEQ/L (5-15) Estimat Glomerular Filtration Rate 165 ML/MIN (>89) Troponin I 0.03 NG/ML (0.02-0.05) Blood Gas Puncture Site LT RADIAL LT RADIAL Blood Gas Patient Temperature 98.6 98.6 Blood Gas HCO3 37 mmol/L (22-26) 36 mmol/L (22-26) Blood Gas Base Excess 11.2 mmol/L (-2-2) 11.1 mmol/L (-2-2) Blood Gas Oxygen Saturation 95 % (90-100) 83 % (90-100) Arterial Blood pH 7.38 (7.380-7.420) 7.40 (7.380-7.420) Arterial Blood Partial Pressure CO2 64 mmHg (38-42) 61 mmHg (38-42) Arterial Blood Partial Pressure O2 111 mmHg (61-120) 52 mmHg (61-120) Arterial Blood Oxygen Content 14.7 Vol % (12.0-20.0) 14.2 Vol % (12.0-20.0) Arterial Blood Carboxyhemoglobin 2.0 % (0-4) 2.0 % (0-4) Arterial Blood Methemoglobin 1.1 % (0-2) 1.1 % (0-2) Blood Gas Hemoglobin 10.8 G/DL (12.0-16.0) 12.1 G/DL (12.0-16.0) Oxygen Delivery Device NASAL CANNULA Venti Mask Blood Gas Liter Flow 4 L/M 6 L/M Blood Gas Inspired Oxygen 50 % Result Diagram: 04/16/17 0426 04/16/17 0426 Microbiology Microbiology Date/Time Source Procedure Growth Status 04/15/17 17:10 Blood Peripheral Aerobic Blood Culture - Preliminary NO GROWTH IN 1 DAY Resulted 04/15/17 17:10 Blood Peripheral Anaerobic Blood Culture - Preliminary NO GROWTH IN 1 DAY Resulted 04/15/17 17:05 Blood Peripheral Aerobic Blood Culture - Preliminary NO GROWTH IN 1 DAY Resulted 04/15/17 17:05 Blood Peripheral Anaerobic Blood Culture - Preliminary NO GROWTH IN 1 DAY Resulted Imaging Last Impressions Chest X-Ray 04/16/17 0600 Signed Impressions: Service Date/Time: Sunday, April 16, 2017 04:18 - CONCLUSION: 1. Severe pulmonary fibrosis with some basilar airspace disease similar to April 15. Yandel Roberts MD Procedures BiPAP 04/16/17 . Patient/Family Conference Present at Family Conference: Daughter Adriana Tom, grandson Ariel Myers. . Family Conference Time (mins): 49 Family Conference Location: Bedside, Hallway Issues Discussed: * Palliative care role, purpose, approach * Additional medical, psychosocial, and spiritual history * Patients general health, functional status, and cognitive changes in the months leading up to the current hospitalization * Patient/family understanding of the current medical problems * Patient/family understanding of prognosis * Patients goals of care as best understood from advance directives and/or conversations and/or values * Current medical treatment options and benefits/burdens of those options * Likely scenarios comparing ongoing aggressive care with a transition to comfort measures only * Questions answered to the best of my ability * Palliative care contact information provided . Assessment and Plan Disease Oriented Problem List: (1) hypoxic respiratory failure (2) pulmonary fibrosis (3) pneumonia (4) anxiety, history of panic attacks (5) hypertension (6) gastritis Symptom Scale: (1) anxiety 0-10 Scale: 3 (2) dyspnea 0-10 Scale: Unable to quantify Pertinent Non-Medical Issues Psychosocial: but , 4 children, Swedish-speaking. Spiritual: Legal: The patient has capacity for decision-making, but she is deferring discussions about goals of care to her daughter Adriana and her other children. Ethical issues impacting care: . Important Contacts Healthcare surrogate daughter: Adriana Tom (Swedish-speaking only) -- > SHE DOES NOT HAVE A PHONE BUT CAN BE REACHED BY CALLING HER SISTER JULIET CHENG - [phone] Son: ARIEL Hercules [phone] (speaks some Singaporean) Grandson with same name ARIEL Reed [phone] (speaks good Singaporean) . Prognosis The patient's prognosis is poor, as she has pulmonary fibrosis that seems to be nearing end-stage. She would be appropriate for hospice services if the goals became comfort oriented. . Code Status: Alternative Code (no intubation) Plan * CODE STATUS: NO INTUBATION - the family does want everything else done * DECISION-MAKING: The patient has capacity for decision-making, but she is deferring discussions about goals of care to her daughter Adriana the designated healthcare surrogate, and her other children. * GOALS: The patient defers discussion of goals to her daughter Adriana and other family members. They have requested no intubation but want everything else done at this time. There hoping she will be able to return home after treatment here at the hospital. They are requesting that Palliative Care has a discussion about goals and prognosis with all 4 of the patient's children, and we will try to arrange that for the upcoming days. * SYMPTOMS: Dyspnea is her main problem, and some PRN morphine is ordered. I will add some low-dose lorazepam to help with dyspnea and because the patient has an underlying anxiety disorder. * Palliative care will continue to follow the patient during this hospitalization. . Time Spent Total Floor Time (mins): 81 Face to Face Time (mins): 30 >50% Counseling/Coord of Care: Yes (d/w RN) Thank you for the opportunity to participate in the care of Ms. Tom. Attestation To help prompt me to consider important information that might be impacting today's encounter and assessment, information from prior notes written by myself or my colleagues may have been "brought forward" into today's note. My signature on this note, however, is an attestation that I personally performed the exam, history, and/or decision-making noted today, and, unless otherwise indicated, the interactions with patient, family, and staff as well as the review of records all occurred today. I also attest that the listed assessment and stated plan reflect my best clinical judgment today based on the combination of historical information, prior notes, and today's exam/ interactions. When time spent is documented, it refers only to time spent today by the signer, or if indicated, combined time spent today by collaborating physician/nurse practitioner. Bailey Muñiz MD Apr 16, 2017 17:48
[2017-04-16] MEDS ORDERED: LORazepam 2 MG/ML VIAL IV PUSH PRN (19:00)
[2017-04-16] MEDS: AZITHROMYCIN INJ 500 MG in SODIUM CHLOR 0.9% 250 ML INJ 250 ML IV SCH (20:41)
[2017-04-16] MEDS: MIRTAZAPINE 15 MG TAB PO SCH (20:42)
[2017-04-16] MEDS ORDERED: SODIUM CHLOR 0.9% 1000 ML INJ 1,000 ML IV ONE (21:45)
[2017-04-16] MEDS: SODIUM CHLOR 0.9% 1000 ML INJ 1,000 ML IV SCH (22:22)
[2017-04-17] VITALS (13 sets, daily range): BP systolic 71–106; BP diastolic 42–53; PULSE 57–97; RESP 16–23; TEMP 97.2–98.3; O2SAT 94–100
[2017-04-17] MEDS: PIPERACIL-TAZO 4.5 GM PREMIX 100 ML IV SCH ×4 (03:26→19:58)
[2017-04-17] MEDS: RESP: ALBUTEROL 2.5 MG/IPRATROPIUM 0.5 MG NEB (SCH) INH ×3 (03:57→22:26)
[2017-04-17] MEDS: CHLORHEXIDINE GLUCONATE 2 % 1 PACK (2 CLOTHS) TOP SCH ×2 (04:00→22:51)
[2017-04-17] MEDS: VANCOMYCIN INJ 1,500 MG in SODIUM CHLORID 0.9% 500 ML INJ 500 ML IV SCH (05:23)
--- NOTE | 2017-04-17 06:21 | RADRPT ---
EXAM DATE/TIME: 04/17/2017 05:23 [facility] COMPARISON: CT THORAX W/O CONTRAST, April 16, 2017, 16:15. INDICATIONS : Shortness of breath MEDICAL HISTORY : Cardiovascular disease. Hypertension SURGICAL HISTORY : None. ENCOUNTER: Subsequent ACUITY: 1 week PAIN SCORE: Non-responsive. LOCATION: Bilateral chest FINDINGS: A single view of the chest demonstrates extensive pulmonary fibrosis similar to April 16. No new infiltrate or effusion. Cardiomegaly. No pneumothorax. CONCLUSION: 1. Extensive pulmonary fibrosis with some basilar airspace disease. No significant change from . Yandel Roberts MD on April 17, 2017 at 6:17 Board Certified Radiologist. This report was verified electronically.
[2017-04-17 06:33] LABS: ALT (GPT) 18 U/L (10-53); ANION GAP 6 MEQ/L (5-15); AST (GOT) 24 U/L (15-37); BICARBONATE 33.5 MEQ/L (21.0-32.0); CHLORIDE 107 MEQ/L (98-107); GLOMERULAR FILTRATION RATE 201 ML/MIN (>89); POTASSIUM 3.1 MEQ/L (3.5-5.1); SODIUM (NA) 146 MEQ/L (136-145)
[2017-04-17 06:35] LABS: ALKALINE PHOSPHATASE 64 U/L (45-117); TOTAL BILIRUBIN ADULT 0.7 MG/DL (0.2-1.0)
[2017-04-17 06:38] LABS: BLOOD UREA NITROGEN 7 MG/DL (7-18)
[2017-04-17] MEDS: methylPREDNISolone SOD SUCC 40 MG/1 ML VIAL IV PUSH SCH ×3 (06:44→19:59)
[2017-04-17] MEDS: HEPARIN SODIUM - SQ 10,000 UNITS/ML VIAL SQ SCH ×3 (06:45→19:59)
[2017-04-17 07:08] LABS: AUTOMATED NEUTROPHIL # 8.8 TH/MM3 (1.8-7.7); BASOPHIL % 0.1 % (0.0-2.0); HEMATOCRIT 36.8 % (35.0-46.0); HEMO FLAGS AUTO DIFF; LYMPH % 4.1 % (9.0-44.0); LYMPHOCYTE # 0.4 TH/MM3 (1.0-4.8); MEAN CELL VOLUME 96.9 FL (80.0-100.0); MONO % 2.2 % (0.0-8.0); NEUT % 93.6 % (16.0-70.0); PLATELET COUNT 72 TH/MM3 (150-450); WHITE BLOOD COUNT 9.5 TH/MM3 (4.0-11.0)
[2017-04-17] MEDS: SODIUM CHLOR 0.9% 1000 ML INJ 1,000 ML IV SCH ×2 (08:45→22:52)
[2017-04-17] MEDS: acetaZOLAMIDE 250 MG TAB PO SCH (09:00)
[2017-04-17] MEDS: amLODIPine BESYLATE 5 MG TAB PO SCH (09:00)
[2017-04-17 09:20] LABS: PLATELET ESTIMATE SMEAR LOW (NORMAL); PLATELET MORPHOLOGY NORMAL (NORMAL); SCAN/DIFF AUTO DIFF CONFIRMED
--- NOTE | 2017-04-17 10:27 | MB ---
cc: TOM NICHOLSON DATE OF CONSULTATION: 04/16/17 REASON FOR CONSULTATION Respiratory distress and hypoxia. HISTORY OF PRESENT ILLNESS This is a 76-year-old female who was recently discharged from [facility] in [place] who has a history of pulmonary fibrosis and has been on 2 liters of oxygen at home. The patient was admitted at [facility] for pneumonia and exacerbation of bronchiectasis. She was home but apparently developed progressive shortness of breath over the past 24 hours and had to be brought to the emergency room emergently. Upon arrival the patient was hypoxic, hypercapnic and was placed on oxygen via mask and on BiPAP and subsequently admitted to the Intensive Care Unit. The patient is presently on oxygen via nasal cannula and seems to be stable and not having any wheezing or significant cough or chest pains. PAST MEDICAL HISTORY The patient's past history has included - 1. Pneumonia. 2. Pulmonary fibrosis. 3. History of an abscess. 4. History of hypertension. 5. Prior history of gastritis. PAST SURGICAL HISTORY No history of surgery in the past. MEDICATIONS Med list included - 1. Omeprazole 40 mg b.i.d. 2. Amlodipine 5 mg daily. 3. Prednisone 40 mg daily. 4. Mirtazapine 15 mg h.s. 5. Mycophenolate Mofetil 500 mg b.i.d. 6. Omeprazole 40 mg daily. 7. Amlodipine 5 mg daily. REVIEW OF SYSTEMS The patient unable to relate to any details and speaks only Faroese. FAMILY HISTORY Noncontributory. HABITS The patient is a nonsmoker. No significant alcohol use. PHYSICAL EXAMINATION GENERAL: This averagely built, elderly female is alert, in no acute distress. VITAL SIGNS: Blood pressure 110/60, pulse is 105, respirations 22, temperature 92. HEAD, EYES, EARS, NOSE AND THROAT: Head normocephalic. Pupils are reactive and equal. Tongue moist. Nasal mucosa edematous. Throat is injected. NECK: Supple. No bruits or thyroid enlargement. No lymphadenopathy. CHEST: Equal movements with distant breath sounds and occasional wheezes bilaterally. Prolonged expirations. HEART: The heart sounds irregular. S1, S2. No murmur. ABDOMEN: Abdomen is soft and benign. No mass. No organomegaly or tenderness. The bowel sounds are active. EXTREMITIES: Mild edema with diminished pulses. Reflexes are brisk with no gross motor deficits. Cranial nerves are grossly intact. RECTAL: Exam is deferred. IMPRESSION 1. Bilateral pneumonia with hypoxemia. 2. 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 3. History of hypertension. PLAN The patient has been advised to give a sputum sample for culture and Gram stain. A CT of the chest and a pulmonary function study to be obtained. We will add solumedrol 40 mg IV q8h She will continue using the oxygen at night at 4 liters.Cont Antibiotics as ordered. Megan hagand.PRN. Will follow. Thank you for this consultation. Tom Nicholson MD JJOSE L/ARI /11:23 PM /9:58 AM MTDD
[2017-04-17] MEDS ORDERED: POTASSIUM CHLORIDE 25 MEQ EFFERVESCENT TAB PO PRN (10:30)
[2017-04-17] MEDS ORDERED: MAGNESIUM OXIDE 400 MG TAB PO PRN (10:30)
[2017-04-17] MEDS ORDERED: POTASSIUM PHOSPHATE MONOBASIC 500 MG TAB PO/TUBE PRN (10:30)
[2017-04-17] MEDS ORDERED: POTASSIUM PHOSPHATE MONOBASIC 500 MG TAB PO PRN (10:30)
[2017-04-17] MEDS ORDERED: POTASSIUM CHLOR 20 MEQ PREMIX 100 ML IV PRN (10:30)
[2017-04-17] MEDS ORDERED: FUROSEMIDE 40 MG/4 ML VIAL IV PUSH ONE (10:30)
[2017-04-17] MEDS ORDERED: MAGNESIUM SULFATE INJ 4 GM in SODIUM CHLORIDE 0.9% INJ 92 ML IV PRN (10:30)
[2017-04-17] MEDS ORDERED: SODIUM PHOSPHATE INJ 30 MMOL in SODIUM CHLOR 0.9% 250 ML INJ 240 ML IV PRN (10:30)
[2017-04-17] MEDS ORDERED: MAGNESIUM SULFATE INJ 2 GM in SODIUM CHLORIDE 0.9% INJ 96 ML IV PRN (10:30)
[2017-04-17] MEDS ORDERED: POTASSIUM PHOSPHATE INJ 30 MMOL in SODIUM CHLOR 0.9% 250 ML INJ 250 ML IV PRN (10:30)
[2017-04-17] MEDS ORDERED: POTASSIUM CHLOR 40 MEQ PREMIX 100 ML IV PRN ×2 (10:30)
--- NOTE | 2017-04-17 10:36 | HHI.CCPN ---
Subjective Remarks/Hospital Course 04/15: 76-year-old unfortunate female with history of pulmonary fibrosis for last 4 years on 2 L home oxygen nasal cannula presents for evaluation of acute onset shortness of breath. Patient was discharged from [facility] today. She was admitted to [facility] for treatment off pneumonia. While driving home from the hospital patient became very short of breath. Patient was on her usual continuous oxygen at 2 L during the sudden onset of dyspnea. Upon arrival to the emergency department patient needed help to be removed from the back seat of the vehicle. Patient was rushed into a medical room for expedited treatment. Patient is Iranian speaking only. 04/16: Resting in bed on nasal cannula 5-10 L/m. Breathing slightly labored 04/17: Patient appears dyspneic on nonrebreather facemask. Objective Vital Signs Date Time Temp Pulse Resp B/P (MAP) Pulse Ox O2 Delivery O2 Flow Rate FiO2 04/17/17 09:11 100 Non-Rebreather 12.00 04/17/17 04:00 57 04/17/17 04:00 97.4 20 75/45 (55) 04/16/17 20:05 40 Result Diagram: 04/17/17 0539 04/17/17 0539 Other Results Laboratory Tests Test 04/16/17 13:11 04/17/17 05:39 Blood Gas Puncture Site LT RADIAL Blood Gas Patient Temperature 98.6 Blood Gas HCO3 36 mmol/L Blood Gas Base Excess 11.1 mmol/L Blood Gas Oxygen Saturation 83 % Arterial Blood pH 7.40 Arterial Blood Partial Pressure CO2 61 mmHg Arterial Blood Partial Pressure O2 52 mmHg Arterial Blood Oxygen Content 14.2 Vol % Arterial Blood Carboxyhemoglobin 2.0 % Arterial Blood Methemoglobin 1.1 % Blood Gas Hemoglobin 12.1 G/DL Oxygen Delivery Device Venti Mask Blood Gas Liter Flow 6 L/M Blood Gas Inspired Oxygen 50 % White Blood Count 9.5 TH/MM3 Red Blood Count 3.80 MIL/MM3 Hemoglobin 12.2 GM/DL Hematocrit 36.8 % Mean Corpuscular Volume 96.9 FL Mean Corpuscular Hemoglobin 32.0 PG Mean Corpuscular Hemoglobin Concent 33.0 % Red Cell Distribution Width 14.0 % Platelet Count 72 TH/MM3 Mean Platelet Volume 10.6 FL Neutrophils (%) (Auto) 93.6 % Lymphocytes (%) (Auto) 4.1 % Monocytes (%) (Auto) 2.2 % Eosinophils (%) (Auto) 0.0 % Basophils (%) (Auto) 0.1 % Neutrophils # (Auto) 8.8 TH/MM3 Lymphocytes # (Auto) 0.4 TH/MM3 Monocytes # (Auto) 0.2 TH/MM3 Eosinophils # (Auto) 0.0 TH/MM3 Basophils # (Auto) 0.0 TH/MM3 CBC Comment AUTO DIFF Differential Comment AUTO DIFF CONFIRMED Platelet Estimate LOW Platelet Morphology Comment NORMAL Hematology Comments Blood Urea Nitrogen 7 MG/DL Creatinine 0.32 MG/DL Random Glucose 176 MG/DL Total Protein 5.5 GM/DL Albumin 2.3 GM/DL Calcium Level 7.8 MG/DL Alkaline Phosphatase 64 U/L Aspartate Amino Transf (AST/SGOT) 24 U/L Alanine Aminotransferase (ALT/SGPT) 18 U/L Total Bilirubin 0.7 MG/DL Sodium Level 146 MEQ/L Potassium Level 3.1 MEQ/L Chloride Level 107 MEQ/L Carbon Dioxide Level 33.5 MEQ/L Anion Gap 6 MEQ/L Estimat Glomerular Filtration Rate 201 ML/MIN Imaging Last 24 hours Impressions Chest X-Ray 04/15/17 1649 Signed Impressions: Service Date/Time: March 17:31 - CONCLUSION: Diffuse interstitial opacity with differential diagnosis of chronic interstitial lung disease and pulmonary edema. Superimposed left lower lobe consolidation and small left pleural effusion. Chung Mai MD Objective Remarks HEENT/Neuro: No icterus, pallor present tongue moist, JASPAL, Awake alert oriented 3, nonfocal grossly, moving all 4 extremities Neck: No JVD Chest/pulmonary: Good air entry bilaterally, scattered rhonchi and crackles, no wheezing Cardiovascular: S1-S2 regular no gallop or murmur GI/abdomen: Soft, nontender, bowel sounds present Extremities: Warm bilaterally, no edema A/P Assessment and Plan Respiratory failure - Patient on NRBM - Pulmonary fibrosis as a underlying condition. Continue steroids and bronchodilators - Pneumonia - Broad-spectrum antibiotics. On is azithromycin/Zosyn/vancomycin IV - De-escalate per sensitivity - Sputum blood urine cultures and antigens - Consulted pulmonary for further evaluation Hypertension - Currently normotensive - Resume home meds DVT GI prophylaxis - Teds SCDs - Subcutaneous heparin - Omeprazole Palliative care consulted to assist with deciding goals of therapy. Patient's family has made her DNR status and would not want intubation. They wish to continue other medical therapy. Prognosis appears poor. Pablito Shearer MD Apr 17, 2017 10:36
[2017-04-17] MEDS: POTASSIUM CHLOR 10 MEQ PREMIX 100 ML IV SCH ×3 (12:18→16:45)
[2017-04-17] MEDS: DOCUSATE SODIUM 50 MG/SENNA 8.6 MG TAB PO SCH ×2 (12:27→20:00)
[2017-04-17] MEDS: PANTOPRAZOLE SOD 40 MG DELAYED RELEASE TAB PO SCH ×2 (12:27→19:59)
[2017-04-17] MEDS: MYCOPHENOLATE MOFETIL 500 MG TAB PO SCH ×2 (12:27→20:00)
[2017-04-17] MEDS: guaiFENesin E.R. 600 MG TAB PO SCH ×2 (12:27→20:00)
[2017-04-17] MEDS: SODIUM CHLORIDE 0.9% FLUSH 10 ML FLUSH SCH ×2 (12:28→20:00)
--- NOTE | 2017-04-17 14:50 | HHI.PR ---
Subjective Remarks She is on O2 at 5L. Seems to be Comfortable. O2 sat 95 Objective Vital Signs Date Time Temp Pulse Resp B/P (MAP) Pulse Ox O2 Delivery O2 Flow Rate FiO2 04/17/17 14:00 84 04/17/17 12:00 97.2 75 87/42 (57) 98 04/17/17 12:00 75 04/17/17 10:00 70 04/17/17 09:11 100 Non-Rebreather 12.00 04/17/17 08:00 67 04/17/17 08:00 98.3 67 22 71/42 (52) 99 04/17/17 04:00 57 04/17/17 04:00 97.4 57 20 75/45 (55) 99 04/17/17 02:00 61 04/17/17 00:00 97.7 64 16 106/53 (70) 100 04/17/17 00:00 64 04/16/17 22:00 62 04/16/17 21:00 98 Non-Rebreather 15.00 04/16/17 20:05 97 40 04/16/17 20:04 88 Venturi Mask 6.00 50 04/16/17 20:00 85 04/16/17 20:00 98.0 85 53 126/62 (83) 89 04/16/17 18:00 79 04/16/17 16:00 79 04/16/17 16:00 98.9 79 22 107/55 (72) 100 I/O 04/16/17 04/16/17 04/16/17 04/17/17 04/17/17 04/17/17 07:00 15:00 23:00 07:00 15:00 23:00 Intake Total 300 ml 993 ml 350 ml 200 ml Balance 300 ml 993 ml 350 ml 200 ml Intake Oral 200 ml 350 ml IV Total 100 ml 993 ml 200 ml # Voids 3 2 Result Diagram: 04/17/1739 04/17/17538 Objective Remarks GENERAL: This averagely built, elderly white female is alert, in no acute distress. VITAL SIGNS: Blood pressure 110/60, pulse is 105, respirations 22, temperature 92. HEAD, EYES, EARS, NOSE AND THROAT: Head normocephalic. Pupils are reactive and equal. Tongue moist. Nasal mucosa edematous. Throat is injected. NECK: Supple. No bruits or thyroid enlargement. No lymphadenopathy. CHEST: Equal movements with distant breath sounds and occasional wheezes bilaterally. Prolonged expirations.Basal crackles HEART: The heart sounds irregular. S1, S2. No murmur. ABDOMEN: Abdomen is soft and benign. No mass. No organomegaly or tenderness. The bowel sounds are active. EXTREMITIES: Mild edema with diminished pulses. Reflexes are 1 + with no gross motor deficits. RECTAL: Exam is deferred. Assessment and Plan Assessment and Plan IMPRESSION 1. Bilateral pneumonia with hypoxemia. 2. 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 3. History of hypertension. Plan : 1. Continue antibiotics as ordered. 2. Solumedrol 40 mg IV q8h. 3. Wean O2 to keep sat >92. 4. Nebs qid , duoneb. 5. Rpt CXR ,CBC,BMP in am 6. Use Bipap if sats drop <90 Hemalatha Nicholson MD Apr 17, 2017 14:50
[2017-04-17] MEDS: MORPHINE SULFATE 4 MG/ML INJ IV PUSH PRN (18:16)
[2017-04-17] MEDS: AZITHROMYCIN INJ 500 MG in SODIUM CHLOR 0.9% 250 ML INJ 250 ML IV SCH (19:59)
[2017-04-17] MEDS: oxyCODONE/ACETAMINOPHEN 5 MG/325 MG TAB PO PRN (19:59)
[2017-04-17] MEDS: MIRTAZAPINE 15 MG TAB PO SCH (20:00)
[2017-04-17] MEDS ORDERED: PHARMACY ORDERED LAB ONE (22:45)
[2017-04-18] VITALS (30 sets, daily range): BP systolic 88–114; BP diastolic 50–59; PULSE 65–105; RESP 18–27; TEMP 97.9–99; O2SAT 90–97
[2017-04-18] MEDS: oxyCODONE/ACETAMINOPHEN 5 MG/325 MG TAB PO PRN ×3 (00:30→23:23)
[2017-04-18] MEDS: VANCOMYCIN INJ 1,500 MG in SODIUM CHLORID 0.9% 500 ML INJ 500 ML IV SCH ×2 (00:30→17:46)
[2017-04-18] MEDS: PIPERACIL-TAZO 4.5 GM PREMIX 100 ML IV SCH ×4 (02:10→19:52)
[2017-04-18] MEDS: RESP: ALBUTEROL 2.5 MG/IPRATROPIUM 0.5 MG NEB (SCH) INH ×4 (04:37→19:58)
[2017-04-18] MEDS: HEPARIN SODIUM - SQ 10,000 UNITS/ML VIAL SQ SCH ×3 (05:09→19:53)
[2017-04-18] MEDS: methylPREDNISolone SOD SUCC 40 MG/1 ML VIAL IV PUSH SCH ×3 (05:09→19:52)
[2017-04-18] MEDS: POTASSIUM CHLOR 20 MEQ PREMIX 100 ML IV PRN ×3 (06:40→17:53)
[2017-04-18] MEDS: MORPHINE SULFATE 4 MG/ML INJ IV PUSH PRN ×2 (07:40→22:15)
[2017-04-18] MEDS: guaiFENesin E.R. 600 MG TAB PO SCH ×2 (07:45→19:52)
[2017-04-18] MEDS: PANTOPRAZOLE SOD 40 MG DELAYED RELEASE TAB PO SCH ×2 (07:45→19:52)
[2017-04-18] MEDS: acetaZOLAMIDE 250 MG TAB PO SCH (07:46)
[2017-04-18] MEDS: DOCUSATE SODIUM 50 MG/SENNA 8.6 MG TAB PO SCH ×2 (07:46→19:54)
[2017-04-18] MEDS: MYCOPHENOLATE MOFETIL 500 MG TAB PO SCH ×2 (07:46→19:52)
[2017-04-18] MEDS: SODIUM CHLORIDE 0.9% FLUSH 10 ML FLUSH SCH ×2 (07:47→19:52)
--- NOTE | 2017-04-18 10:36 | HHI.CCPN ---
Subjective Remarks/Hospital Course 04/15: 76-year-old unfortunate female with history of pulmonary fibrosis for last 4 years on 2 L home oxygen nasal cannula presents for evaluation of acute onset shortness of breath. Patient was discharged from [facility] today. She was admitted to [facility] for treatment off pneumonia. While driving home from the hospital patient became very short of breath. Patient was on her usual continuous oxygen at 2 L during the sudden onset of dyspnea. Upon arrival to the emergency department patient needed help to be removed from the back seat of the vehicle. Patient was rushed into a medical room for expedited treatment. Patient is Bangladeshi speaking only. 04/16: Resting in bed on nasal cannula 5-10 L/m. Breathing slightly labored 04/17: Patient appears dyspneic on nonrebreather facemask. 04/18: Resting in bed, slightly dyspneic. On nasal cannula 5 L/m. Extremely poor by mouth intake per [employer]. Objective Vital Signs Date Time Temp Pulse Resp B/P (MAP) Pulse Ox O2 Delivery O2 Flow Rate FiO2 04/18/17 08:51 97 Nasal Cannula 6.00 04/18/17 08:00 65 04/18/17 08:00 98.7 18 107/58 (74) 04/16/17 20:05 40 Result Diagram: 04/17/17 0539 04/18/17 0506 Imaging Last 24 hours Impressions Chest X-Ray 04/15/17 1649 Signed Impressions: Service Date/Time: March 17:31 - CONCLUSION: Diffuse interstitial opacity with differential diagnosis of chronic interstitial lung disease and pulmonary edema. Superimposed left lower lobe consolidation and small left pleural effusion. Chung Mai MD Objective Remarks HEENT/Neuro: No icterus, pallor present tongue moist, JASPAL, Awake alert oriented 3, nonfocal grossly, moving all 4 extremities Neck: No JVD Chest/pulmonary: Good air entry bilaterally, scattered rhonchi and crackles, no wheezing Cardiovascular: S1-S2 regular no gallop or murmur GI/abdomen: Soft, nontender, bowel sounds present Extremities: Warm bilaterally, no edema A/P Assessment and Plan Respiratory failure - Patient on 5 L nasal cannula - Pulmonary fibrosis as a underlying condition. Continue steroids and bronchodilators - Pneumonia - Broad-spectrum antibiotics. On is azithromycin/Zosyn/vancomycin IV - De-escalate per sensitivity - Sputum blood urine cultures and antigens - Consulted pulmonary for further evaluation - Dr. Archuleta following Hypertension - Currently normotensive - Resume home meds DVT GI prophylaxis - Teds SCDs - Subcutaneous heparin - Omeprazole Palliative care consulted to assist with deciding goals of therapy. Patient's family has made her DNR status and would not want intubation. They wish to continue other medical therapy. Prognosis appears poor. Pablito Shearer MD Apr 18, 2017 10:36
--- NOTE | 2017-04-18 16:12 | HHI.PR ---
Subjective Remarks She is on O2 at 5L. Seems to be Comfortable. O2 sat 94. More alert and talking . Less SOB. Objective Vital Signs Date Time Temp Pulse Resp B/P (MAP) Pulse Ox O2 Delivery O2 Flow Rate FiO2 04/18/17 14:00 88 04/18/17 12:00 96 04/18/17 12:00 98.1 90 27 104/57 (73) 97 04/18/17 10:00 93 04/18/17 08:51 97 Nasal Cannula 6.00 04/18/17 08:00 65 04/18/17 08:00 98.7 90 18 107/58 (74) 96 04/18/17 07:50 16 04/18/17 06:00 83 04/18/17 04:00 75 04/18/17 04:00 75 04/18/17 04:00 98.0 75 25 90/50 (63) 94 04/18/17 03:45 79 04/18/17 03:30 83 04/18/17 03:15 84 04/18/17 03:01 90 04/18/17 03:00 89 04/18/17 02:45 88 04/18/17 02:30 81 04/18/17 02:15 78 04/18/17 02:00 82 04/18/17 02:00 82 04/18/17 01:45 83 04/18/17 01:30 76 04/18/17 01:15 75 04/18/17 01:02 82 04/18/17 01:00 88 04/18/17 00:45 76 04/18/17 00:30 87 04/18/17 00:15 82 04/18/17 00:00 86 04/18/17 00:00 86 04/18/17 00:00 98.0 86 19 88/59 (69) 94 04/17/17 22:26 97 Nasal Cannula 6.00 04/17/17 22:00 74 04/17/17 20:00 98.0 86 21 86/52 (63) 94 04/17/17 20:00 81 04/17/17 18:00 93 I/O 04/17/17 04/17/17 04/17/17 04/18/17 04/18/17 04/18/17 07:00 15:00 23:00 07:00 15:00 23:00 Intake Total 200 ml 900 ml Output Total 100 ml Balance 200 ml 800 ml Intake Oral 700 ml IV Total 200 ml 200 ml Output Stool Total 100 ml # Voids 5 3 # Bowel Movements 2 Result Diagram: 04/17/17 0539 04/18/17 0506 Objective Remarks GENERAL: This averagely built, elderly white female is alert, in no acute distress. VITAL SIGNS: Blood pressure 110/60, pulse is 105, respirations 22, temperature 92. HEAD, EYES, EARS, NOSE AND THROAT: Head normocephalic. Pupils are reactive and equal. Tongue moist. Nasal mucosa edematous. Throat is clear. NECK: Supple. No bruits or thyroid enlargement. No lymphadenopathy. CHEST: Equal movements with distant breath sounds and occasional wheezes bilaterally. Prolonged expirations.Bi Basal crackles heard. HEART: The heart sounds irregular. S1, S2. No murmur. ABDOMEN: Abdomen is soft and benign. No mass. No organomegaly or tenderness. The bowel sounds are active. EXTREMITIES: No edema with diminished pulses. Reflexes are 1 + with no gross motor deficits. RECTAL: Exam is deferred. Assessment and Plan Assessment and Plan IMPRESSION 1. Bilateral pneumonia with hypoxemia. 2. 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 3. History of hypertension. Plan : 1. Continue antibiotics as ordered. 2. Solumedrol 40 mg IV q12h. 3. Wean O2 to keep sat >92. 4. Nebs qid , duoneb. 5. Rpt CBC,BMP in am 6. Use Bipap if sats drop <90 7. Transfer to floor. Hemalatha Nicholson MD Apr 18, 2017 16:12
[2017-04-18] MEDS ORDERED: methylPREDNISolone SOD SUCC 40 MG/1 ML VIAL IV SCH (16:15)
[2017-04-18] MEDS: AZITHROMYCIN INJ 500 MG in SODIUM CHLOR 0.9% 250 ML INJ 250 ML IV SCH (19:52)
[2017-04-18] MEDS: MIRTAZAPINE 15 MG TAB PO SCH (19:53)
[2017-04-18] MEDS: ZOLPIDEM TARTRATE 5 MG TAB PO PRN (19:53)
[2017-04-18] MEDS: CHLORHEXIDINE GLUCONATE 2 % 1 PACK (2 CLOTHS) TOP SCH (19:54)
[2017-04-18] MEDS: SODIUM CHLOR 0.9% 1000 ML INJ 1,000 ML IV SCH (19:56)
[2017-04-19] VITALS (14 sets, daily range): BP systolic 95–134; BP diastolic 52–67; PULSE 80–110; RESP 14–28; TEMP 98–99; O2SAT 90–98
[2017-04-19] MEDS: PIPERACIL-TAZO 4.5 GM PREMIX 100 ML IV SCH ×4 (02:15→20:38)
[2017-04-19] MEDS: RESP: ALBUTEROL 2.5 MG/IPRATROPIUM 0.5 MG NEB (SCH) INH ×4 (03:45→20:24)
[2017-04-19] MEDS: methylPREDNISolone SOD SUCC 40 MG/1 ML VIAL IV PUSH SCH ×3 (04:40→20:32)
[2017-04-19] MEDS: HEPARIN SODIUM - SQ 10,000 UNITS/ML VIAL SQ SCH ×3 (04:40→20:32)
[2017-04-19] MEDS: POTASSIUM CHLOR 20 MEQ PREMIX 100 ML IV PRN ×4 (04:45→17:32)
[2017-04-19] MEDS: MYCOPHENOLATE MOFETIL 500 MG TAB PO SCH ×2 (08:08→20:32)
[2017-04-19] MEDS: guaiFENesin E.R. 600 MG TAB PO SCH ×2 (08:08→20:33)
[2017-04-19] MEDS: DOCUSATE SODIUM 50 MG/SENNA 8.6 MG TAB PO SCH ×2 (08:08→20:33)
[2017-04-19] MEDS: PANTOPRAZOLE SOD 40 MG DELAYED RELEASE TAB PO SCH ×2 (08:08→20:32)
[2017-04-19] MEDS: acetaZOLAMIDE 250 MG TAB PO SCH (08:08)
[2017-04-19] MEDS: SODIUM CHLORIDE 0.9% FLUSH 10 ML FLUSH SCH ×2 (08:09→20:38)
[2017-04-19 09:02] LABS: HEMATOCRIT 33.9 % (35.0-46.0); MEAN CELL VOLUME 95.3 FL (80.0-100.0); MEAN CORPUSCULAR HGB CONC 33.5 % (32.0-36.0); PLATELET COUNT 83 TH/MM3 (150-450); RED BLOOD COUNT 3.55 MIL/MM3 (4.00-5.30); RED CELL DISTRIBUTION WIDTH 13.9 % (11.6-17.2); WHITE BLOOD COUNT 11.4 TH/MM3 (4.0-11.0)
[2017-04-19 09:04] LABS: HEMO FLAGS AUTO DIFF
[2017-04-19 09:26] LABS: ANION GAP 7 MEQ/L (5-15); AST (GOT) 24 U/L (15-37); BICARBONATE 43.4 MEQ/L (21.0-32.0); BLOOD UREA NITROGEN 6 MG/DL (7-18); CHLORIDE 92 MEQ/L (98-107); GLOMERULAR FILTRATION RATE 294 ML/MIN (>89); POTASSIUM 3.5 MEQ/L (3.5-5.1); SODIUM (NA) 142 MEQ/L (136-145)
[2017-04-19 09:28] LABS: ALT (GPT) 19 U/L (10-53)
[2017-04-19 09:29] LABS: ALKALINE PHOSPHATASE 66 U/L (45-117); TOTAL BILIRUBIN ADULT 1.1 MG/DL (0.2-1.0)
[2017-04-19 09:58] LABS: BANDS 6 % (0-6); NEUTROPHIL # MANUAL DIFF 11.2 TH/MM3 (1.8-7.7); PLATELET ESTIMATE SMEAR LOW (NORMAL); PLATELET MORPHOLOGY NORMAL (NORMAL); POLYS (SEG NEUTROPHILS) 92 % (16-70); WBC DIFF SAMPLE 100
[2017-04-19 09:59] LABS: SCAN/DIFF FINAL DIFF MANUAL
[2017-04-19] MEDS: VANCOMYCIN INJ 1,500 MG in SODIUM CHLORID 0.9% 500 ML INJ 500 ML IV SCH (11:46)
--- NOTE | 2017-04-19 12:09 | HHI.HCPN ---
Reason for visit a. To assist with evaluation and management of symptoms including: Dyspnea, anxiety b. To assist medical decision maker(s) with: better understanding of current medical conditions; weighing benefits/burdens of medical treatment options; making medical treatment decisions. . (Becka Mcmahon) Subjective/Interval History Mrs. Tom is a 76-year-old female with a medical history significant for end- stage pulmonary fibrosis, hypertension and gastritis. Patient was admitted on secondary to hypoxemic respiratory failure and pneumonia. Patient's overall prognosis is poor given end-stage pulmonary fibrosis, pneumonia, advanced age and profound physical deconditioning. Palliative care has been consulted for further clarifications of goals of care given the above. Patient seen in medical ICU. Resting in bed in moderate distress secondary to increased work of breathing and epigastric pain. Patient endorsing shortness of breath at rest and on exertion, epigastric pain worsen after meals. Patient endorsing mild nausea, no vomiting. Last bowel movement yesterday. Most recent chest x-ray 04/17/17 revealing extensive pulmonary fibrosis with some basilar airspace disease. Patient remains afebrile, intermittent tachycardia with heart rate in the low 100s. Stable hemodynamically. Currently on 6 L nasal cannula, oxygen saturation in the low 90s. Blood cultures with no growth in 4 days. Laboratory workup today revealing WBC 11.4, Hgb 11.4, platelet count 83. BUN/creatinine 6/0.23. Albumin 2.3. Patient is Hungarian speaker. Both daughters Adriana and Neda at bedside. No carbon grinder used over needed as palliative critical care physician, patient and family speak fluent Hungarian. Patient originally from [place], has been in [place] for the past 5 years. Family reports pt progressive decline, worsen over the past year. Patient mainly independent with ADLs but fatigues easily. Chronic O2 use at home at 2 L. Recent hospitalization at [facility] in [place] for recurrent pneumonias. Discussed natural progression of pulmonary fibrosis and described current end-stage. Shared most recent chest x-rays and laboratory workup. Discussed risks, benefits and limitations of CPR, intubation and mechanical ventilation given patient's overall poor prognosis. Family reiterated NO code status -DNR/DNI. patient verbalized wishing for her daughter Adriana to be designated healthcare surrogate, designation of surrogate form completed. Discussed continuation of conservative management short of no code versus transition to comfort-directed care. Hospice philosophy and benefits introduced. Hospice is a new concept for patient and family. Patient and family to discuss further. Goal of therapy at this time is to continue with current management while goals of care conversation ongoing. Case discussed with bedside RN Moisés. . Family/friend interactions See interval note. . (Becka Mcmahon) Advance Directives Living Will: Never completed Health Care Surrogate: Copy in medical record Durable Power of Dishwasher Preparer: Never completed (Becka Mcmahon) Advance Directive Specifics Date completed: 04/19/17. . Health Care Surrogate(s): Patient elected daughter Adriana Tom as her healthcare surrogate. . Significant change in goals: DNR/DNI. Patient and family electing to continue current conservative management short of no code while ongoing goals of care conversation. Hospice philosophy and benefits introduced. . (Becka Mcmahon) Objective Vital Signs Date Time Temp Pulse Resp B/P (MAP) Pulse Ox O2 Delivery O2 Flow Rate FiO2 04/19/17 09:18 94 Nasal Cannula 6.00 04/19/17 08:00 87 04/19/17 08:00 98.0 87 22 134/67 (89) 94 04/19/17 06:00 81 04/19/17 04:00 99.0 80 14 95/55 (68) 95 04/19/17 04:00 80 04/19/17 02:00 83 04/19/17 00:00 99.0 102 28 109/59 (76) 90 04/19/17 00:00 102 04/18/17 22:00 105 04/18/17 21:12 90 Non-Rebreather 15.00 100 04/18/17 20:00 91 04/18/17 20:00 94 Nasal Cannula 6.00 04/18/17 20:00 99.0 91 26 114/59 (77) 94 04/18/17 18:00 99 04/18/17 16:00 97.9 98 26 98/53 (68) 93 04/18/17 16:00 98 04/18/17 14:00 88 04/18/17 12:00 96 04/18/17 12:00 98.1 90 27 104/57 (73) 97 Intake & Output 10/2/17 10/2/17 07:00 19:00 Intake Total 240 ml Balance 240 ml Intake Oral 240 ml # Voids 5 Physical Exam CONSTITUTIONAL/GENERAL: This is an elderly, weak patient, in mild respiratory distress. TUBES/LINES/DRAINS: Nasal cannula, IV SKIN: No jaundice, rashes, or lesions. Ecchymoses on upper extremities. No wounds seen anteriorly. Skin temperature appropriate. Not diaphoretic. HEAD: Atraumatic. Normocephalic. EYES: Pupils equal and round and reactive. Extraocular motions intact. No scleral icterus. No injection or drainage. Fundi not examined. ENT: Hard of hearing. Nose without bleeding or purulent drainage. Moist oral mucosa. NECK: Trachea midline. Supple, nontender. CARDIOVASCULAR: Regular rate and rhythm without murmurs, gallops, or rubs. No JVD. Peripheral pulses symmetric. RESPIRATORY/CHEST: Symmetric, mildly labored respirations. Diminished breath sounds, diffusely scattered rales. GASTROINTESTINAL: Abdomen soft, tender to palpation to epigastric area, nondistended. Bowel sounds present. GENITOURINARY: Without palpable bladder distension. MUSCULOSKELETAL: Extremities without clubbing, cyanosis, or edema. No mottling or clubbing. NEUROLOGICAL: Awake and alert. Lethargic/week. Follows commands. Moves all extremities. PSYCHIATRIC: Intermittent periods of anxiety. . (Becka Mcmahon) Diagnostic Tests Laboratory Laboratory Tests Test 04/16/17 13:11 04/17/17 05:39 04/17/17 23:23 04/18/17 05:06 Blood Gas Puncture Site LT RADIAL Blood Gas Patient Temperature 98.6 Blood Gas HCO3 36 mmol/L (22-26) Blood Gas Base Excess 11.1 mmol/L (-2-2) Blood Gas Oxygen Saturation 83 % (90-100) Arterial Blood pH 7.40 (7.380-7.420) Arterial Blood Partial Pressure CO2 61 mmHg (38-42) Arterial Blood Partial Pressure O2 52 mmHg (61-120) Arterial Blood Oxygen Content 14.2 Vol % (12.0-20.0) Arterial Blood Carboxyhemoglobin 2.0 % (0-4) Arterial Blood Methemoglobin 1.1 % (0-2) Blood Gas Hemoglobin 12.1 G/DL (12.0-16.0) Oxygen Delivery Device Venti Mask Blood Gas Liter Flow 6 L/M Blood Gas Inspired Oxygen 50 % White Blood Count 9.5 TH/MM3 (4.0-11.0) Red Blood Count 3.80 MIL/MM3 (4.00-5.30) Hemoglobin 12.2 GM/DL (11.6-15.3) Hematocrit 36.8 % (35.0-46.0) Mean Corpuscular Volume 96.9 FL (80.0-100.0) Mean Corpuscular Hemoglobin 32.0 PG (27.0-34.0) Mean Corpuscular Hemoglobin Concent 33.0 % (32.0-36.0) Red Cell Distribution Width 14.0 % (11.6-17.2) Platelet Count 72 TH/MM3 (150-450) Mean Platelet Volume 10.6 FL (7.0-11.0) Neutrophils (%) (Auto) 93.6 % (16.0-70.0) Lymphocytes (%) (Auto) 4.1 % (9.0-44.0) Monocytes (%) (Auto) 2.2 % (0.0-8.0) Eosinophils (%) (Auto) 0.0 % (0.0-4.0) Basophils (%) (Auto) 0.1 % (0.0-2.0) Neutrophils # (Auto) 8.8 TH/MM3 (1.8-7.7) Lymphocytes # (Auto) 0.4 TH/MM3 (1.0-4.8) Monocytes # (Auto) 0.2 TH/MM3 (0-0.9) Eosinophils # (Auto) 0.0 TH/MM3 (0-0.4) Basophils # (Auto) 0.0 TH/MM3 (0-0.2) CBC Comment AUTO DIFF Differential Comment AUTO DIFF CONFIRMED Platelet Estimate LOW (NORMAL) Platelet Morphology Comment NORMAL (NORMAL) Hematology Comments Blood Urea Nitrogen 7 MG/DL (7-18) Creatinine 0.32 MG/DL (0.50-1.00) Random Glucose 176 MG/DL (74-106) Total Protein 5.5 GM/DL (6.4-8.2) Albumin 2.3 GM/DL (3.4-5.0) Calcium Level 7.8 MG/DL (8.5-10.1) Alkaline Phosphatase 64 U/L (45-117) Aspartate Amino Transf (AST/SGOT) 24 U/L (15-37) Alanine Aminotransferase (ALT/SGPT) 18 U/L (10-53) Total Bilirubin 0.7 MG/DL (0.2-1.0) Sodium Level 146 MEQ/L (136-145) Potassium Level 3.1 MEQ/L (3.5-5.1) 2.5 MEQ/L (3.5-5.1) Chloride Level 107 MEQ/L (98-107) Carbon Dioxide Level 33.5 MEQ/L (21.0-32.0) Anion Gap 6 MEQ/L (5-15) Estimat Glomerular Filtration Rate 201 ML/MIN (>89) Vancomycin Level Trough 15.3 MCG/ML (5.0-10.0) Test 04/19/17 00:39 04/19/17 08:00 Potassium Level 3.1 MEQ/L (3.5-5.1) 3.5 MEQ/L (3.5-5.1) White Blood Count 11.4 TH/MM3 (4.0-11.0) Red Blood Count 3.55 MIL/MM3 (4.00-5.30) Hemoglobin 11.4 GM/DL (11.6-15.3) Hematocrit 33.9 % (35.0-46.0) Mean Corpuscular Volume 95.3 FL (80.0-100.0) Mean Corpuscular Hemoglobin 32.0 PG (27.0-34.0) Mean Corpuscular Hemoglobin Concent 33.5 % (32.0-36.0) Red Cell Distribution Width 13.9 % (11.6-17.2) Platelet Count 83 TH/MM3 (150-450) Mean Platelet Volume 9.6 FL (7.0-11.0) CBC Comment AUTO DIFF Differential Total Cells Counted 100 Neutrophils % (Manual) 92 % (16-70) Band Neutrophils % 6 % (0-6) Lymphocytes % 2 % (9-44) Neutrophils # (Manual) 11.2 TH/MM3 (1.8-7.7) Differential Comment FINAL DIFF MANUAL Toxic Vacuolation (NONE SEEN) Platelet Estimate LOW (NORMAL) Platelet Morphology Comment NORMAL (NORMAL) Blood Urea Nitrogen 6 MG/DL (7-18) Creatinine 0.23 MG/DL (0.50-1.00) Random Glucose 158 MG/DL (74-106) Total Protein 5.9 GM/DL (6.4-8.2) Albumin 2.3 GM/DL (3.4-5.0) Calcium Level 8.5 MG/DL (8.5-10.1) Alkaline Phosphatase 66 U/L (45-117) Aspartate Amino Transf (AST/SGOT) 24 U/L (15-37) Alanine Aminotransferase (ALT/SGPT) 19 U/L (10-53) Total Bilirubin 1.1 MG/DL (0.2-1.0) Sodium Level 142 MEQ/L (136-145) Chloride Level 92 MEQ/L (98-107) Carbon Dioxide Level 43.4 MEQ/L (21.0-32.0) Anion Gap 7 MEQ/L (5-15) Estimat Glomerular Filtration Rate 294 ML/MIN (>89) (Becka Mcmahon) Result Diagram: 04/19/17 0800 04/19/17 0800 Microbiology Microbiology Date/Time Source Procedure Growth Status 04/15/17 17:10 Blood Peripheral Aerobic Blood Culture - Preliminary NO GROWTH IN 4 DAYS Resulted 04/15/17 17:10 Blood Peripheral Anaerobic Blood Culture - Preliminary NO GROWTH IN 4 DAYS Resulted (Becka Mcmahon) Assessment and Plan Disease Oriented Problem List: (1) hypoxic respiratory failure (2) pulmonary fibrosis (3) pneumonia (4) anxiety, history of panic attacks (5) hypertension (6) gastritis Symptom Scale: (1) dyspnea 0-10 Scale: Unable to quantify Comment: Secondary to pulmonary fibrosis, pneumonia. Currently on O2 via nasal cannula at 6 L. (2) Pain 0-10 Scale: 4 Comment: Pain to epigastric region. (3) anxiety 0-10 Scale: 0 Comment: Acute on chronic. Exacerbated by shortness of breath and pain. Pertinent Non-Medical Issues Psychosocial: but , 4 children, Hungarian-speaking. Patient originally from [place]. Has been in [place] for the past 5 years. Spiritual: [employer]. Legal: Designation of healthcare surrogate completed. Patient has designated her daughter Adriana as healthcare surrogate. Ethical issues impacting care: No ethical legal issues identified. . Important Contacts Healthcare surrogate daughter: Adriana Tom (Hungarian-speaking only) -- > SHE DOES NOT HAVE A PHONE BUT CAN BE REACHED BY CALLING HER SISTER NEDA CHENG - [phone] Son: STEVEN Hercules [phone] (speaks some Belarusian) Grandson with same name STEVEN Reed [phone] (speaks good Belarusian) . Prognosis Mrs. Tom is a 76-year-old female with a medical history significant for end- stage pulmonary fibrosis, hypertension and gastritis. Patient was admitted on secondary to hypoxemic respiratory failure and pneumonia. Patient's overall prognosis is poor given advanced pulmonary fibrosis, pneumonia, advanced age and profound physical deconditioning. Patient appears hospice appropriate should patient/family elects comfort-directed care. . Code Status: No Code Plan * CODE STATUS: No code. DNR/DNI. This has been confirmed with patient and her 2 daughters Adriana and Neda. * DECISION-MAKING: Patient is deferring discussions about goals of care to her daughter Adriana. Patient with a fair understanding of her clinical condition and overall poor prognosis. Designation of healthcare surrogate completed, patient designated her daughter Adriana Tom as HCS. Daughter has accepted this role. * GOALS OF CARE: Patient deferring goals of care conversation to daughters. Discussed with 2 daughters Adriana/FRITZ and Neda continuation of conservative management short of no code vs. transition to comfort-directed care given overall poor prognosis/advanced pulmonary fibrosis. Hospice philosophy and benefits introduced. Hospice is a new concept to patient and family. Patient and family to discuss further. Goal of therapy at this time is to continue with current management short of NO code while ongoing goals of care conversation. * SYMPTOMS: =Dyspnea is her main problem secondary to pulmonary fibrosis, pna. Currently on O2 via nasal cannula 6 L. Intermittent with nonrebreather mask. = Epigastric pain: History of gastritis. Currently receiving Protonix twice a day. Morphine and Percocet available as needed for generalized pain. = Anxiety , acute on chronic. History of panic attacks. Exacerbated now by shortness of breath. Lorazepam available as needed. * Case discussed with bedside ALEJANDRA Curiel. * Palliative care contact information has been provided to patient and family. * Palliative care will continue to follow-up for further clarifications of goals of care as patient's clinical condition continues to evolve. . (Becka Mcmahon) Time Spent Total Floor Time (mins): 42 (Total time to include review of medical records, physical exam, goals of care conversation with patient and daughters, assistance in completing designation of healthcare surrogate, discussion with bedside RN. Curiel. ) >50% Counseling/Coord of Care: Yes (Becka Mcmahon) Attestation To help prompt me to consider important information that might be impacting today's encounter and assessment, information from prior notes written by myself or my colleagues may have been "brought forward" into today's note. My signature on this note, however, is an attestation that I personally performed the exam, history, and/or decision-making noted today, and, unless otherwise indicated, the interactions with patient, family, and staff as well as the review of records all occurred today. I also attest that the listed assessment and stated plan reflect my best clinical judgment today based on the combination of historical information, prior notes, and today's exam/ interactions. When time spent is documented, it refers only to time spent today by the signer, or if indicated, combined time spent today by collaborating physician/nurse practitioner. (Becka Mcmahon) Collaborating MD Comments Chart reviewed. Case discussed with palliative care CLOTH WINDER MACHINE OPERATOR. Above note reviewed and I concur. . (Jackson Rodríguez MD) Becka Mcmahon Apr 19, 2017 12:09 Jackson Rodríguez MD Apr 25, 2017 12:03
--- NOTE | 2017-04-19 14:57 | HHI.CCPN ---
Subjective Remarks/Hospital Course 04/15: 76-year-old unfortunate female with history of pulmonary fibrosis for last 4 years on 2 L home oxygen nasal cannula presents for evaluation of acute onset shortness of breath. Patient was discharged from [facility] today. She was admitted to [facility] for treatment off pneumonia. While driving home from the hospital patient became very short of breath. Patient was on her usual continuous oxygen at 2 L during the sudden onset of dyspnea. Upon arrival to the emergency department patient needed help to be removed from the back seat of the vehicle. Patient was rushed into a medical room for expedited treatment. Patient is Slovak speaking only. 04/16: Resting in bed on nasal cannula 5-10 L/m. Breathing slightly labored 04/17: Patient appears dyspneic on nonrebreather facemask. 04/18: Resting in bed, slightly dyspneic. On nasal cannula 5 L/m. Extremely poor by mouth intake per [employer] COURTESY CLERK. 04/19: Resting in bed. On 5 L nasal cannula. Slightly dyspneic. Objective Vital Signs Date Time Temp Pulse Resp B/P (MAP) Pulse Ox O2 Delivery O2 Flow Rate FiO2 04/19/17 12:00 95 04/19/17 12:00 98.7 20 114/56 (75) 94 04/19/17 09:18 Nasal Cannula 6.00 04/18/17 21:12 100 Intake and Output 04/19/17 04/19/17 04/20/17 08:00 16:00 00:00 Intake Total 240 ml Balance 240 ml Result Diagram: 04/19/17 0800 04/19/17 0800 Imaging Last 24 hours Impressions Chest X-Ray 04/15/17 1879 Signed Impressions: Service Date/Time: March 17:31 - CONCLUSION: Diffuse interstitial opacity with differential diagnosis of chronic interstitial lung disease and pulmonary edema. Superimposed left lower lobe consolidation and small left pleural effusion. Chung Mai MD Objective Remarks HEENT/Neuro: No icterus, pallor present tongue moist, JASPAL, Awake alert oriented 3, nonfocal grossly, moving all 4 extremities Neck: No JVD Chest/pulmonary: Good air entry bilaterally, scattered rhonchi and crackles, no wheezing Cardiovascular: S1-S2 regular no gallop or murmur GI/abdomen: Soft, nontender, bowel sounds present Extremities: Warm bilaterally, no edema A/P Assessment and Plan Respiratory failure - Patient on 5 L nasal cannula - Pulmonary fibrosis as a underlying condition. Continue steroids and bronchodilators - Pneumonia - Broad-spectrum antibiotics. On is azithromycin/Zosyn/vancomycin IV - De-escalate per sensitivity - Sputum blood urine cultures and antigens - Consulted pulmonary for further evaluation - Dr. Zurita following Hypertension - Currently normotensive - Resume home meds DVT GI prophylaxis - Teds SCDs - Subcutaneous heparin - Omeprazole Palliative care consulted to assist with deciding goals of therapy. Patient's family has made her DNR status and would not want intubation. They wish to continue other medical therapy. Prognosis appears poor. Pablito Shearer MD Apr 19, 2017 14:57
[2017-04-19] MEDS: MORPHINE SULFATE 4 MG/ML INJ IV PUSH PRN (18:44)
--- NOTE | 2017-04-19 19:25 | HHI.PR ---
Subjective Remarks She is on O2 at 5L. Seems to be Comfortable. O2 sat 93. More alert and Less SOB. Objective Vital Signs Date Time Temp Pulse Resp B/P (MAP) Pulse Ox O2 Delivery O2 Flow Rate FiO2 04/19/17 16:00 96 04/19/17 16:00 98.3 96 18 110/55 (73) 90 04/19/17 14:00 92 04/19/17 12:00 95 04/19/17 12:00 98.7 95 20 114/56 (75) 94 04/19/17 10:00 93 04/19/17 09:18 94 Nasal Cannula 6.00 04/19/17 08:00 87 04/19/17 08:00 98.0 87 22 134/67 (89) 94 04/19/17 06:00 81 04/19/17 04:00 99.0 80 14 95/55 (68) 95 04/19/17 04:00 80 04/19/17 02:00 83 04/19/17 00:00 99.0 102 28 109/59 (76) 90 04/19/17 00:00 102 04/18/17 22:00 105 04/18/17 21:12 90 Non-Rebreather 15.00 100 04/18/17 20:00 91 04/18/17 20:00 94 Nasal Cannula 6.00 04/18/17 20:00 99.0 91 26 114/59 (77) 94 I/O 04/18/17 04/18/17 04/18/17 04/19/17 04/19/17 04/19/17 07:00 15:00 23:00 07:00 15:00 23:00 Intake Total 100 ml 920 ml 240 ml Balance 100 ml 920 ml 240 ml Intake Oral 720 ml 240 ml IV Total 100 ml 200 ml # Voids 3 5 5 # Bowel Movements 2 Result Diagram: 04/19/17 0800 04/19/17 0800 Objective Remarks GENERAL: This averagely built, elderly white female is alert, in mild distress. HEAD, EYES, EARS, NOSE AND THROAT: Head normocephalic. Pupils are reactive and equal. Tongue moist. Nasal mucosa edematous. Throat is clear. NECK: Supple. No bruits or thyroid enlargement. No lymphadenopathy. CHEST: Equal movements with distant breath sounds and Prolonged expirations.Bi Basal crackles heard. HEART: The heart sounds irregular. S1, S2. No murmur. ABDOMEN: Abdomen is soft and benign. No mass. No organomegaly or tenderness. The bowel sounds are active. EXTREMITIES: No edema with diminished pulses. Reflexes are 1 + with no gross motor deficits. RECTAL: Exam is deferred. Assessment and Plan Assessment and Plan IMPRESSION 1. Bilateral pneumonia with hypoxemia. 2. 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 3. History of hypertension. Plan : 1. Continue antibiotics as ordered. 2. Solumedrol 40 mg IV q12h. 3. Wean O2 to keep sat >92. 4. Nebs qid , duoneb. 5. Rpt CBC,BMP in am 6. Use Bipap if sats drop <90 7. D/W family , her poor prognosis Hemalatha Nicholson MD Apr 19, 2017 19:25
[2017-04-19] MEDS: SODIUM CHLOR 0.9% 1000 ML INJ 1,000 ML IV SCH (19:31)
[2017-04-19] MEDS: oxyCODONE/ACETAMINOPHEN 5 MG/325 MG TAB PO PRN (20:32)
[2017-04-19] MEDS: ZOLPIDEM TARTRATE 5 MG TAB PO PRN (20:33)
[2017-04-19] MEDS: CHLORHEXIDINE GLUCONATE 2 % 1 PACK (2 CLOTHS) TOP SCH (20:33)
[2017-04-19] MEDS: MIRTAZAPINE 15 MG TAB PO SCH (20:38)
[2017-04-19] MEDS: AZITHROMYCIN INJ 500 MG in SODIUM CHLOR 0.9% 250 ML INJ 250 ML IV SCH (20:38)
[2017-04-20] VITALS (14 sets, daily range): BP systolic 89–140; BP diastolic 59–80; PULSE 81–112; RESP 16–24; TEMP 98.2–99.2; O2SAT 90–98
[2017-04-20] MEDS: PIPERACIL-TAZO 4.5 GM PREMIX 100 ML IV SCH ×4 (02:20→21:58)
[2017-04-20] MEDS: RESP: ALBUTEROL 2.5 MG/IPRATROPIUM 0.5 MG NEB (PRN) INH (04:03)
[2017-04-20] MEDS: VANCOMYCIN INJ 1,500 MG in SODIUM CHLORID 0.9% 500 ML INJ 500 ML IV SCH ×2 (04:43→23:59)
[2017-04-20] MEDS: HEPARIN SODIUM - SQ 10,000 UNITS/ML VIAL SQ SCH ×3 (05:05→22:00)
--- NOTE | 2017-04-20 05:45 | RADRPT ---
EXAM DATE/TIME: 04/20/2017 05:01 [facility] COMPARISON: CHEST SINGLE AP, April 17, 2017, 5:23. INDICATIONS : Shortness of breath. MEDICAL HISTORY : Cardiovascular disease. Hypertension. SURGICAL HISTORY : None. ENCOUNTER: Subsequent ACUITY: 4 - 6 days PAIN SCORE: 0/10 LOCATION: Bilateral chest FINDINGS: Dense consolidation with air bronchograms in the left base and patchy diffuse airspace disease elsewh ere not significantly changed. No large effusion demonstrated. No pneumothorax. Heart size stable, within normal limits. CONCLUSION: Bilateral airspace disease again noted not significantly changed, worst at the left base. Dakota Vanessa MD on April 20, 2017 at 5:42 Board Certified Radiologist. This report was verified electronically.
[2017-04-20] MEDS: MORPHINE SULFATE 4 MG/ML INJ IV PUSH PRN ×3 (08:07→18:31)
[2017-04-20] MEDS: PANTOPRAZOLE SOD 40 MG DELAYED RELEASE TAB PO SCH ×2 (08:09→21:59)
[2017-04-20] MEDS: MYCOPHENOLATE MOFETIL 500 MG TAB PO SCH ×2 (08:09→21:58)
[2017-04-20] MEDS: guaiFENesin E.R. 600 MG TAB PO SCH ×2 (08:09→21:59)
[2017-04-20] MEDS: DOCUSATE SODIUM 50 MG/SENNA 8.6 MG TAB PO SCH ×2 (08:10→21:59)
[2017-04-20] MEDS: methylPREDNISolone SOD SUCC 40 MG/1 ML VIAL IV PUSH SCH ×2 (08:10→20:38)
[2017-04-20] MEDS: acetaZOLAMIDE 250 MG TAB PO SCH (08:10)
[2017-04-20] MEDS: SODIUM CHLORIDE 0.9% FLUSH 10 ML FLUSH SCH ×2 (08:11→21:58)
--- NOTE | 2017-04-20 10:59 | HHI.CCPN ---
Subjective Remarks/Hospital Course 04/15: 76-year-old unfortunate female with history of pulmonary fibrosis for last 4 years on 2 L home oxygen nasal cannula presents for evaluation of acute onset shortness of breath. Patient was discharged from [facility] today. She was admitted to [facility] for treatment off pneumonia. While driving home from the hospital patient became very short of breath. Patient was on her usual continuous oxygen at 2 L during the sudden onset of dyspnea. Upon arrival to the emergency department patient needed help to be removed from the back seat of the vehicle. Patient was rushed into a medical room for expedited treatment. Patient is Belgian speaking only. 04/16: Resting in bed on nasal cannula 5-10 L/m. Breathing slightly labored 04/17: Patient appears dyspneic on nonrebreather facemask. 04/18: Resting in bed, slightly dyspneic. On nasal cannula 5 L/m. Extremely poor by mouth intake per ORGAN TUNER. 04/19: Resting in bed. On 5 L nasal cannula. Slightly dyspneic. 04/20: Resting in bed on nonrebreather facemask. Appears dyspneic. Objective Vital Signs Date Time Temp Pulse Resp B/P (MAP) Pulse Ox O2 Delivery O2 Flow Rate FiO2 04/20/17 07:40 97 Non-Rebreather 15.00 04/20/17 06:00 81 04/20/17 04:00 98.2 20 90/59 (69) 04/19/17 20:27 100 Result Diagram: 04/19/17 0800 04/20/17 0102 Imaging Last 24 hours Impressions Chest X-Ray 04/15/17 1649 Signed Impressions: Service Date/Time: March 17:31 - CONCLUSION: Diffuse interstitial opacity with differential diagnosis of chronic interstitial lung disease and pulmonary edema. Superimposed left lower lobe consolidation and small left pleural effusion. Chung Mai MD Objective Remarks HEENT/Neuro: No icterus, pallor present tongue moist, JASPAL, Awake alert, nonfocal grossly, moving all 4 extremities Neck: No JVD Chest/pulmonary: Good air entry bilaterally, scattered rhonchi and crackles, no wheezing, using accessory muscles of respiration. Appears dyspneic Cardiovascular: S1-S2 regular no gallop or murmur GI/abdomen: Soft, nontender, bowel sounds present Extremities: Warm bilaterally, no edema A/P Assessment and Plan Respiratory failure - Patient on nonrebreather facemask - Pulmonary fibrosis as a underlying condition. Continue steroids and bronchodilators - Pneumonia - Broad-spectrum antibiotics. On is azithromycin/Zosyn/vancomycin IV - De-escalate per sensitivity - Sputum blood urine cultures and antigens - Consulted pulmonary for further evaluation - Dr. Zurita following Hypertension - Currently normotensive - Resume home meds DVT GI prophylaxis - Teds SCDs - Subcutaneous heparin - Omeprazole Palliative care consulted to assist with deciding goals of therapy. Patient's family has made her DNR status and would not want intubation. They wish to continue other medical therapy. Prognosis appears poor. Patient would be an appropriate candidate for hospice. Pablito Shearer MD Apr 20, 2017 10:59
--- NOTE | 2017-04-20 12:16 | HHI.HCPN ---
Reason for visit a. To assist with evaluation and management of symptoms including: Dyspnea, anxiety b. To assist medical decision maker(s) with: better understanding of current medical conditions; weighing benefits/burdens of medical treatment options; making medical treatment decisions. . (Becka Mcmahon) Subjective/Interval History Mrs. Tom is a 76-year-old female with a medical history significant for end- stage pulmonary fibrosis, hypertension and gastritis. Patient was admitted on secondary to hypoxemic respiratory failure and pneumonia. Patient's overall prognosis is poor given end-stage pulmonary fibrosis, pneumonia, advanced age and profound physical deconditioning. Palliative care has been consulted for further clarifications of goals of care given the above. Patient seen in medical ICU. Resting in bed in moderate distress secondary to increased work of breathing. Patient obtunded, briefly opening eyes to verbal stimuli. Not answering questions or following commands. Patient currently on nonrebreather mask at 7L, alternating between high flow 15 L. respiration rate in the mid 30s. Oxygen saturation in the mid 90s. Patient hypotensive with SBP in the high 80s to low 90s. Intermittent periods of tachycardia with heart rate in the low 100s secondary to shortness of breath/anxiety. Patient was recently medicated with 2 mg of morphine secondary to profound shortness of breath. Bedside family meeting. In attendance patient's daughter Adriana/FRITZ, daughter Neda and son Steven. Dr. Shearer participated in part of the meeting for medical update and recommendations. Discussed that that patient is in her final stages of pulmonary fibrosis which carry a very poor prognosis. Discussed patient's progressive decline and acute events to include frequent pneumonias, progressive debility, minimal oral intake and profound physical deconditioning. Reviewed hospice philosophy and benefits. Family was educated at length on disease progression and natural trajectory of illness. Family indicating comfort-oriented goals, they are currently considering transitioning patient to hospice. Goal of therapy at this time is to continue current conservative management short of no code while ongoing goals of care discussion Case discussed with Dr. Shearer and bedside RN Moisés. . Family/friend interactions See interval note. . (Becka Mcmahon) Advance Directives Living Will: Never completed Health Care Surrogate: Copy in medical record Durable Power of Public Affairs Manager: Never completed (Becka Mcmahon) Advance Directive Specifics Date completed: 04/19/17. . Health Care Surrogate(s): Patient elected daughter Adriana Tom as her healthcare surrogate. . Significant change in goals: No code. Family electing to continue current conservative management while ongoing goals of care conversation. . (Becka Mcmahon) Objective Vital Signs Date Time Temp Pulse Resp B/P (MAP) Pulse Ox O2 Delivery O2 Flow Rate FiO2 04/20/17 08:00 106 04/20/17 08:00 98.6 106 16 140/71 (94) 94 04/20/17 07:40 97 Non-Rebreather 15.00 04/20/17 06:00 81 04/20/17 04:00 98.2 86 20 90/59 (69) 90 04/20/17 04:00 86 04/20/17 02:00 85 04/20/17 00:00 99.0 81 22 89/60 (70) 98 04/20/17 00:00 81 04/19/17 22:00 110 04/19/17 20:27 98 Non-Rebreather 100 04/19/17 20:00 102 04/19/17 20:00 98.9 102 26 100/52 (68) 95 04/19/17 18:00 93 04/19/17 16:00 96 04/19/17 16:00 98.3 96 18 110/55 (73) 90 04/19/17 14:00 92 Intake & Output 04/20/17 04/20/17 07:00 19:00 # Voids 8 # Bowel Movements 0 Physical Exam CONSTITUTIONAL/GENERAL: This is an elderly, weak patient, in mild respiratory distress. TUBES/LINES/DRAINS: None rebreather mask, IV SKIN: No jaundice, rashes, or lesions. Ecchymoses on upper extremities. No wounds seen anteriorly. Skin temperature appropriate. Not diaphoretic. HEAD: Atraumatic. Normocephalic. EYES: Pupils equal and round and reactive. No scleral icterus. No injection or drainage. Fundi not examined. ENT: Hard of hearing. Nose without bleeding or purulent drainage. Moist oral mucosa. NECK: Trachea midline. Supple, nontender. CARDIOVASCULAR: Regular rate and rhythm without murmurs, gallops, or rubs. No JVD. Peripheral pulses symmetric. RESPIRATORY/CHEST: Symmetric, mildly labored respirations. Diminished breath sounds, diffusely scattered rales. GASTROINTESTINAL: Abdomen soft, tender to palpation to epigastric area, nondistended. Bowel sounds present. GENITOURINARY: Without palpable bladder distension. MUSCULOSKELETAL: Extremities without clubbing, cyanosis, or edema. No mottling or clubbing. NEUROLOGICAL: Obtunded, not following commands. PSYCHIATRIC: Intermittent periods of anxiety. . (Becka Mcmahon) Diagnostic Tests Laboratory Laboratory Tests Test 04/17/17 23:23 04/18/17 05:06 04/19/17 00:39 04/19/17 08:00 Vancomycin Level Trough 15.3 MCG/ML (5.0-10.0) Potassium Level 2.5 MEQ/L (3.5-5.1) 3.1 MEQ/L (3.5-5.1) 3.5 MEQ/L (3.5-5.1) White Blood Count 11.4 TH/MM3 (4.0-11.0) Red Blood Count 3.55 MIL/MM3 (4.00-5.30) Hemoglobin 11.4 GM/DL (11.6-15.3) Hematocrit 33.9 % (35.0-46.0) Mean Corpuscular Volume 95.3 FL (80.0-100.0) Mean Corpuscular Hemoglobin 32.0 PG (27.0-34.0) Mean Corpuscular Hemoglobin Concent 33.5 % (32.0-36.0) Red Cell Distribution Width 13.9 % (11.6-17.2) Platelet Count 83 TH/MM3 (150-450) Mean Platelet Volume 9.6 FL (7.0-11.0) CBC Comment AUTO DIFF Differential Total Cells Counted 100 Neutrophils % (Manual) 92 % (16-70) Band Neutrophils % 6 % (0-6) Lymphocytes % 2 % (9-44) Neutrophils # (Manual) 11.2 TH/MM3 (1.8-7.7) Differential Comment FINAL DIFF MANUAL Toxic Vacuolation (NONE SEEN) Platelet Estimate LOW (NORMAL) Platelet Morphology Comment NORMAL (NORMAL) Blood Urea Nitrogen 6 MG/DL (7-18) Creatinine 0.23 MG/DL (0.50-1.00) Random Glucose 158 MG/DL (74-106) Total Protein 5.9 GM/DL (6.4-8.2) Albumin 2.3 GM/DL (3.4-5.0) Calcium Level 8.5 MG/DL (8.5-10.1) Alkaline Phosphatase 66 U/L (45-117) Aspartate Amino Transf (AST/SGOT) 24 U/L (15-37) Alanine Aminotransferase (ALT/SGPT) 19 U/L (10-53) Total Bilirubin 1.1 MG/DL (0.2-1.0) Sodium Level 142 MEQ/L (136-145) Chloride Level 92 MEQ/L (98-107) Carbon Dioxide Level 43.4 MEQ/L (21.0-32.0) Anion Gap 7 MEQ/L (5-15) Estimat Glomerular Filtration Rate 294 ML/MIN (>89) Test 04/20/17 01:02 Potassium Level 3.8 MEQ/L (3.5-5.1) (Becka Mcmahon) Result Diagram: 04/19/17 0800 04/20/17 0102 Microbiology Microbiology Date/Time Source Procedure Growth Status 04/15/17 17:10 Blood Peripheral Aerobic Blood Culture - Final NO GROWTH IN 5 DAYS Complete 04/15/17 17:10 Blood Peripheral Anaerobic Blood Culture - Final NO GROWTH IN 5 DAYS Complete Imaging Last 24 hours Impressions Chest X-Ray 04/20/17 0600 Signed Impressions: Service Date/Time: Thursday, April 20, 2017 05:01 - CONCLUSION: Bilateral airspace disease again noted not significantly changed, worst at the left base. Dakota Vanessa MD (Becka Mcmahon) Assessment and Plan Disease Oriented Problem List: (1) hypoxic respiratory failure (2) pulmonary fibrosis (3) pneumonia (4) anxiety, history of panic attacks (5) hypertension (6) gastritis Symptom Scale: (1) dyspnea 0-10 Scale: Unable to quantify Comment: Secondary to pulmonary fibrosis, pneumonia. Currently alternating between nonrebreather mask and nasal cannula. (2) Pain 0-10 Scale: Unable to quantify Comment: Pain to epigastric region. (3) anxiety 0-10 Scale: Unable to quantify Comment: Acute on chronic. Exacerbated by shortness of breath and pain. Pertinent Non-Medical Issues Psychosocial: but , 4 children, Latvian-speaking. Patient originally from [place]. Has been in [place] for the past 5 years. Spiritual: Buddhism. Legal: Designation of healthcare surrogate completed. Patient has designated her daughter Adriana as healthcare surrogate. Ethical issues impacting care: No ethical legal issues identified. . Important Contacts Healthcare surrogate daughter: Adriana Tom (Latvian-speaking only) -- > SHE DOES NOT HAVE A PHONE BUT CAN BE REACHED BY CALLING HER SISTER NEDA CHENG - [phone] Son: STEVEN Reed - [phone] (speaks some Pakistani) Grandson with same name STEVEN Reed [phone] (speaks good Pakistani) . Prognosis Mrs. Tom is a 76-year-old female with a medical history significant for end- stage pulmonary fibrosis, hypertension and gastritis. Patient was admitted on secondary to hypoxemic respiratory failure and pneumonia. Patient's overall prognosis is poor given advanced pulmonary fibrosis, pneumonia, advanced age and profound physical deconditioning. Patient appears hospice appropriate should patient/family elects comfort-directed care. . Code Status: No Code Plan * CODE STATUS: No code. DNR/DNI. This has been confirmed with patient and her 2 daughters Adriana and Neda. * DECISION-MAKING: Patient is deferring discussions about goals of care to her daughter Adriana. Patient with a fair understanding of her clinical condition and overall poor prognosis. Designation of healthcare surrogate completed, patient designated her daughter Adriana Tom as HCS. Daughter has accepted this role. * GOALS OF CARE: Goal of therapy at this time is to continue current conservative management short of no code while ongoing goals of care discussion. Family considering transitioning patient to comfort-directed care with hospice given overall poor prognosis. * SYMPTOMS: =Dyspnea is her main problem secondary to pulmonary fibrosis, pna. Currently alternating between nonrebreather mask and high flow. =Epigastric pain: History of gastritis. Currently receiving Protonix twice a day. Morphine and Percocet available as needed for generalized pain. = Anxiety, acute on chronic. History of panic attacks. Exacerbated now by shortness of breath. Lorazepam available as needed. * Case discussed with Dr. Shearer and bedside RN Moisés. * Palliative care contact information has been provided to patient and family. * Palliative care will continue to follow-up for further clarifications of goals of care as patient's clinical condition continues to evolve. . (Becka Mcmahon) Time Spent Total Floor Time (mins): 72 (Total time to include review of medical records, physical exam, bedside family meeting from 9:40 to 10:36, case discussion with Dr. Shearer and bedside RN Moisés.) >50% Counseling/Coord of Care: Yes (Becka Mcmahon) Attestation To help prompt me to consider important information that might be impacting today's encounter and assessment, information from prior notes written by myself or my colleagues may have been "brought forward" into today's note. My signature on this note, however, is an attestation that I personally performed the exam, history, and/or decision-making noted today, and, unless otherwise indicated, the interactions with patient, family, and staff as well as the review of records all occurred today. I also attest that the listed assessment and stated plan reflect my best clinical judgment today based on the combination of historical information, prior notes, and today's exam/ interactions. When time spent is documented, it refers only to time spent today by the signer, or if indicated, combined time spent today by collaborating physician/nurse practitioner. (Becka Mcmahon) Collaborating MD Comments Chart reviewed. Case discussed with palliative care PATIENT MONITOR. Above PATIENT MONITOR note reviewed and I concur. . (Jackson Rodríguez MD) Becka Mcmahon Apr 20, 2017 12:16 Jackson Rodríguez MD Apr 25, 2017 15:47
[2017-04-20] MEDS: SODIUM CHLOR 0.9% 1000 ML INJ 1,000 ML IV SCH (16:18)
--- NOTE | 2017-04-20 19:14 | HHI.PR ---
Subjective Remarks She is on O2 at 80 % NRB mask.. Seems to be Comfortable. O2 sat 94. Lethargic . Objective Vital Signs Date Time Temp Pulse Resp B/P (MAP) Pulse Ox O2 Delivery O2 Flow Rate FiO2 04/20/17 14:00 100 04/20/17 13:01 20 04/20/17 12:00 104 04/20/17 12:00 98.7 104 18 130/80 (97) 94 04/20/17 10:00 112 04/20/17 08:00 106 04/20/17 08:00 98.6 106 16 140/71 (94) 94 04/20/17 07:40 97 Non-Rebreather 15.00 04/20/17 06:00 81 04/20/17 04:00 98.2 86 20 90/59 (69) 90 04/20/17 04:00 86 04/20/17 02:00 85 04/20/17 00:00 99.0 81 22 89/60 (70) 98 04/20/17 00:00 81 04/19/17 22:00 110 04/19/17 20:27 98 Non-Rebreather 100 04/19/17 20:00 102 04/19/17 20:00 98.9 102 26 100/52 (68) 95 I/O 04/19/17 04/19/17 04/19/17 04/20/17 04/20/17 04/20/17 07:00 15:00 23:00 07:00 15:00 23:00 Intake Total 240 ml Balance 240 ml Intake Oral 240 ml # Voids 5 2 6 # Bowel Movements 0 Result Diagram: 04/19/17 0800 04/20/17 0102 Objective Remarks GENERAL: This averagely built, elderly white female is , in resp distress. HEAD, EYES, EARS, NOSE AND THROAT: Head normocephalic. Pupils are reactive and equal. Tongue moist. Nasal mucosa edematous. Throat is clear. NECK: Supple. No bruits or thyroid enlargement. No lymphadenopathy. CHEST: Equal movements with distant breath sounds and Prolonged expirations.Bi Basal crackles heard. HEART: The heart sounds irregular. S1, S2. No murmur. ABDOMEN: Abdomen is soft and benign. No mass. No organomegaly or tenderness. The bowel sounds are active. EXTREMITIES: No edema with diminished pulses. Reflexes are 1 + with no gross motor deficits. RECTAL: Exam is deferred. Assessment and Plan Assessment and Plan IMPRESSION 1. Bilateral pneumonia with hypoxemia. 2. 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 3. History of hypertension. Plan : 1. Continue antibiotics as ordered. 2. Solumedrol 40 mg IV q12h. 3. Wean O2 to keep sat >92. 4. Nebs qid , duoneb. 5. Morphine 2 mg IV q4h prn 6. Use Bipap if sats drop <90 7. D/W family , her poor prognosis Hemalatha Nicholson MD Apr 20, 2017 19:13
[2017-04-20] MEDS: AZITHROMYCIN INJ 500 MG in SODIUM CHLOR 0.9% 250 ML INJ 250 ML IV SCH (20:39)
[2017-04-20] MEDS: MIRTAZAPINE 15 MG TAB PO SCH (21:59)
[2017-04-20] MEDS ORDERED: PHARMACY ORDERED LAB ONE (22:45)
[2017-04-21] VITALS (11 sets, daily range): BP systolic 87–99; BP diastolic 50–55; PULSE 80–126; RESP 14–26; TEMP 98.2–98.6; O2SAT 89–100
[2017-04-21] MEDS: MORPHINE SULFATE 4 MG/ML INJ IV PUSH PRN ×3 (02:18→21:21)
[2017-04-21] MEDS: PIPERACIL-TAZO 4.5 GM PREMIX 100 ML IV SCH ×2 (03:44→08:47)
[2017-04-21] MEDS: CHLORHEXIDINE GLUCONATE 2 % 1 PACK (2 CLOTHS) TOP SCH (04:00)
[2017-04-21] MEDS: RESP: ALBUTEROL 2.5 MG/IPRATROPIUM 0.5 MG NEB (PRN) INH (05:42)
[2017-04-21] MEDS: HEPARIN SODIUM - SQ 10,000 UNITS/ML VIAL SQ SCH (06:00)
[2017-04-21] MEDS: methylPREDNISolone SOD SUCC 40 MG/1 ML VIAL IV PUSH SCH ×2 (08:48→21:02)
[2017-04-21] MEDS: SODIUM CHLORIDE 0.9% FLUSH 10 ML FLUSH SCH (08:49)
[2017-04-21] MEDS: PANTOPRAZOLE SOD 40 MG DELAYED RELEASE TAB PO SCH (09:00)
[2017-04-21] MEDS: MYCOPHENOLATE MOFETIL 500 MG TAB PO SCH (09:00)
[2017-04-21] MEDS: DOCUSATE SODIUM 50 MG/SENNA 8.6 MG TAB PO SCH (09:00)
[2017-04-21] MEDS: acetaZOLAMIDE 250 MG TAB PO SCH (09:00)
[2017-04-21] MEDS: guaiFENesin E.R. 600 MG TAB PO SCH (09:00)
--- NOTE | 2017-04-21 10:07 | HHI.HCPN ---
Reason for visit a. To assist with evaluation and management of symptoms including: Dyspnea, anxiety b. To assist medical decision maker(s) with: better understanding of current medical conditions; weighing benefits/burdens of medical treatment options; making medical treatment decisions. . Subjective/Interval History Mrs. Tom is a 76-year-old female with a medical history significant for end- stage pulmonary fibrosis, hypertension and gastritis. Patient was admitted on secondary to hypoxemic respiratory failure and pneumonia. Patient's overall prognosis is poor given end-stage pulmonary fibrosis, pneumonia, advanced age and profound physical deconditioning. Palliative care has been consulted for further clarifications of goals of care given the above. Patient seen in medical ICU. Continue to rapidly decompensate. Patient currently on nonrebreather mask at 15 L at 100%, oxygen saturation in the low 80s, respiration rate in the mid 20s. Patient hypotensive with SBP in the 90s, tachycardic with heart rate in the low 100s. Laboratory workup today indicating creatinine 0.39. No new imaging or additional lab for review. Case discussed with bedside RN Maggie. Bedside conversation with patient's family to include daughter Adriana/FRITZ, daughter Neda and son Steven. No bleach boiler filler used or required as patient's family and palliative care provider speaks fluent [place] Islander. Discussed patient's worsening clinical condition, patient appears to be actively dying. Reviewed continuation of conservative management short of no code vs transition patient to comfort-directed care given worsening clinical status and comfort directed goals. Family requesting hospice consultation, likely DC to hospice care center for symptom management and of life care. Hospice referral has been made. Case discussed with DR. Shearer. . Family/friend interactions See interval note. . Advance Directives Living Will: Never completed Health Care Surrogate: Copy in medical record Durable Power of Senior Materials Analyst: Never completed Advance Directive Specifics Date completed: 04/19/17. . Health Care Surrogate(s): Patient elected ruiz Tom as her healthcare surrogate. . Significant change in goals: Comfort directed care with hospice. Pending consultation. . Objective Vital Signs Date Time Temp Pulse Resp B/P (MAP) Pulse Ox O2 Delivery O2 Flow Rate FiO2 04/21/17 06:18 100 High Flow Nasal Cannula 25.00 50 04/21/17 06:00 87 04/21/17 04:00 98.4 80 14 99/55 (70) 90 04/21/17 04:00 84 04/21/17 02:45 18 04/21/17 02:00 84 04/21/17 00:00 81 04/21/17 00:00 98.6 81 26 96/54 (68) 96 04/20/17 22:00 85 04/20/17 20:08 96 Non-Rebreather 15.00 100 04/20/17 20:00 99.2 91 24 117/65 (82) 95 04/20/17 20:00 91 04/20/17 18:00 90 04/20/17 16:00 89 04/20/17 16:00 98.8 90 16 137/61 (86) 94 04/20/17 14:00 100 04/20/17 13:01 20 04/20/17 12:00 104 04/20/17 12:00 98.7 104 18 130/80 (97) 94 04/20/17 10:00 112 Intake & Output 04/21/17 04/21/17 07:00 19:00 # Voids 3 # Bowel Movements 0 Physical Exam CONSTITUTIONAL/GENERAL: This is an elderly, weak patient, in mild respiratory distress/increased work of breathing. Unresponsive to verbal or tactile stimuli. TUBES/LINES/DRAINS: NRB mask, IV SKIN: No jaundice, rashes, or lesions. Ecchymoses on upper extremities. No wounds seen anteriorly. Skin temperature appropriate. Not diaphoretic. HEAD: Atraumatic. Normocephalic. EYES: Pupils equal and round and reactive. No scleral icterus. No injection or drainage. Fundi not examined. ENT: Hard of hearing. Nose without bleeding or purulent drainage. Moist oral mucosa. Dry lips. NECK: Trachea midline. Supple, nontender. CARDIOVASCULAR: Tachycardic with heart rate in the low 100s. Now Murmurs, gallops, or rubs. No JVD. Peripheral pulses symmetric. RESPIRATORY/CHEST: Symmetric, increased work of breathing. Respiration rate in the mid 20s. Diminished breath sounds, diffusely scattered rales. GASTROINTESTINAL: Abdomen soft, tender to palpation to epigastric area, nondistended. Bowel sounds present. GENITOURINARY: Without palpable bladder distension. MUSCULOSKELETAL: Extremities without clubbing, cyanosis, or edema. No mottling or clubbing. NEUROLOGICAL: Unresponsive to verbal or tactile stimuli. PSYCHIATRIC: Unable to assess given clinical condition. Diagnostic Tests Laboratory Laboratory Tests Test 04/19/17 00:39 04/19/17 08:00 04/20/17 01:02 04/20/17 22:45 Potassium Level 3.1 MEQ/L (3.5-5.1) 3.5 MEQ/L (3.5-5.1) 3.8 MEQ/L (3.5-5.1) White Blood Count 11.4 TH/MM3 (4.0-11.0) Red Blood Count 3.55 MIL/MM3 (4.00-5.30) Hemoglobin 11.4 GM/DL (11.6-15.3) Hematocrit 33.9 % (35.0-46.0) Mean Corpuscular Volume 95.3 FL (80.0-100.0) Mean Corpuscular Hemoglobin 32.0 PG (27.0-34.0) Mean Corpuscular Hemoglobin Concent 33.5 % (32.0-36.0) Red Cell Distribution Width 13.9 % (11.6-17.2) Platelet Count 83 TH/MM3 (150-450) Mean Platelet Volume 9.6 FL (7.0-11.0) CBC Comment AUTO DIFF Differential Total Cells Counted 100 Neutrophils % (Manual) 92 % (16-70) Band Neutrophils % 6 % (0-6) Lymphocytes % 2 % (9-44) Neutrophils # (Manual) 11.2 TH/MM3 (1.8-7.7) Differential Comment FINAL DIFF MANUAL Toxic Vacuolation (NONE SEEN) Platelet Estimate LOW (NORMAL) Platelet Morphology Comment NORMAL (NORMAL) Blood Urea Nitrogen 6 MG/DL (7-18) Creatinine 0.23 MG/DL (0.50-1.00) Random Glucose 158 MG/DL (74-106) Total Protein 5.9 GM/DL (6.4-8.2) Albumin 2.3 GM/DL (3.4-5.0) Calcium Level 8.5 MG/DL (8.5-10.1) Alkaline Phosphatase 66 U/L (45-117) Aspartate Amino Transf (AST/SGOT) 24 U/L (15-37) Alanine Aminotransferase (ALT/SGPT) 19 U/L (10-53) Total Bilirubin 1.1 MG/DL (0.2-1.0) Sodium Level 142 MEQ/L (136-145) Chloride Level 92 MEQ/L (98-107) Carbon Dioxide Level 43.4 MEQ/L (21.0-32.0) Anion Gap 7 MEQ/L (5-15) Estimat Glomerular Filtration Rate 294 ML/MIN (>89) Vancomycin Level Trough 16.5 MCG/ML (5.0-10.0) Test 04/21/17 06:34 Creatinine 0.39 MG/DL (0.50-1.00) Estimat Glomerular Filtration Rate 160 ML/MIN (>89) Result Diagram: 04/19/17 0800 04/21/17 0634 Assessment and Plan Disease Oriented Problem List: (1) hypoxic respiratory failure (2) pulmonary fibrosis (3) pneumonia (4) anxiety, history of panic attacks (5) hypertension (6) gastritis Symptom Scale: (1) dyspnea 0-10 Scale: Unable to quantify Comment: Secondary to pulmonary fibrosis, pneumonia. Worsening, currently on nonrebreather mask at 15 L. (2) anxiety 0-10 Scale: Unable to quantify Comment: Acute on chronic. Exacerbated by shortness of breath and pain. (3) Pain 0-10 Scale: Unable to quantify Comment: Pain to epigastric region. Pertinent Non-Medical Issues Psychosocial: but , 4 children, [place] Islander-speaking. Patient originally from [place]. Has been in [place] for the past 5 years. Spiritual: Mosque. Legal: Designation of healthcare surrogate completed. Patient has designated her daughter Adriana as healthcare surrogate. Ethical issues impacting care: No ethical legal issues identified. . Important Contacts Healthcare surrogate daughter: Adriana Tom ([place] Islander-speaking only) -- > SHE DOES NOT HAVE A PHONE BUT CAN BE REACHED BY CALLING HER SISTER NEDA CHENG - [phone] Son: STEVEN Reed - [phone] (speaks some Niuean) Grandson with same name STEVEN Reed [phone] (speaks good Niuean) . Prognosis Mrs. Tom is a 76-year-old female with a medical history significant for end- stage pulmonary fibrosis, hypertension and gastritis. Patient was admitted on secondary to hypoxemic respiratory failure and pneumonia. Patient's overall prognosis is poor given advanced pulmonary fibrosis, pneumonia, advanced age and profound physical deconditioning. Patient appears hospice appropriate should patient/family elects comfort-directed care. . Code Status: No Code Plan * CODE STATUS: No code. DNR/DNI. This has been confirmed with patient and her 2 daughters Josh. * DECISION-MAKING: Patient is deferring discussions about goals of care to her daughter Adriana. Patient with a fair understanding of her clinical condition and overall poor prognosis. Designation of healthcare surrogate completed, patient designated her daughter Adriana Tom as HCS. Daughter has accepted this role. * GOALS OF CARE: Patient's family electing to transition patient to comfort- directed care with hospice given very poor prognosis/end-stage pulmonary fibrosis and worsening clinical condition. Goal is to discharge to hospice care center for symptom management and end-of-life care. Family made aware that patient may at any time, life expectancy of hours to days if illness run its natural course. Hospice referral has been made. * SYMPTOMS: =Dyspnea is her main problem secondary to pulmonary fibrosis, pna. Worsening condition, currently on nonrebreather mask at 15 L. Oxygen saturation in the low 80s. Adding morphine 2 mg every hour as needed for dyspnea. =Epigastric pain: History of gastritis. Currently receiving Protonix twice a day. Morphine and Percocet available as needed for generalized pain. = Anxiety, acute on chronic. History of panic attacks. Exacerbated now by shortness of breath. Lorazepam available as needed. * Case discussed with Dr. Shearer, hospice admission RN Samantha and bedside RN Maggie. * Palliative care contact information has been provided to patient and family. * Palliative care will continue to follow-up for further clarifications of goals of care as patient's clinical condition continues to evolve. . Time Spent Total Floor Time (mins): 48 (Total time to include review of medical records, physical exam, bedside goals of care conversation with patient's family and case discussion with Dr. Shearer, shipping coordinator and bedside RN.) >50% Counseling/Coord of Care: Yes Attestation To help prompt me to consider important information that might be impacting today's encounter and assessment, information from prior notes written by myself or my colleagues may have been "brought forward" into today's note. My signature on this note, however, is an attestation that I personally performed the exam, history, and/or decision-making noted today, and, unless otherwise indicated, the interactions with patient, family, and staff as well as the review of records all occurred today. I also attest that the listed assessment and stated plan reflect my best clinical judgment today based on the combination of historical information, prior notes, and today's exam/ interactions. When time spent is documented, it refers only to time spent today by the signer, or if indicated, combined time spent today by collaborating physician/nurse practitioner. Becka Mcmahon Apr 21, 2017 10:07
[2017-04-21] MEDS: LORazepam 2 MG/ML VIAL IV PUSH SCH ×2 (12:15→17:40)
[2017-04-21] MEDS ORDERED: ACETAMINOPHEN 650 MG SUPP RECTAL PRN (12:15)
[2017-04-21] MEDS ORDERED: LORazepam 2 MG/ML VIAL IM PRN (12:30)
[2017-04-21] MEDS ORDERED: SODIUM CHLORIDE 0.9% FLUSH 10 ML FLUSH IV FLUSH PRN (12:30)
[2017-04-21] MEDS ORDERED: LORazepam 2 MG/ML VIAL IV PUSH PRN (12:30)
[2017-04-21] MEDS: MORPHINE SULFATE 4 MG/ML INJ IV PUSH SCH ×2 (13:15→17:39)
--- NOTE | 2017-04-21 15:36 | HHI.CCPN ---
Subjective Remarks/Hospital Course 04/15: 76-year-old unfortunate female with history of pulmonary fibrosis for last 4 years on 2 L home oxygen nasal cannula presents for evaluation of acute onset shortness of breath. Patient was discharged from [facility] today. She was admitted to [facility] for treatment off pneumonia. While driving home from the hospital patient became very short of breath. Patient was on her usual continuous oxygen at 2 L during the sudden onset of dyspnea. Upon arrival to the emergency department patient needed help to be removed from the back seat of the vehicle. Patient was rushed into a medical room for expedited treatment. Patient is Polish speaking only. 04/16: Resting in bed on nasal cannula 5-10 L/m. Breathing slightly labored 04/17: Patient appears dyspneic on nonrebreather facemask. 04/18: Resting in bed, slightly dyspneic. On nasal cannula 5 L/m. Extremely poor by mouth intake per CHIEF CONTROLLER TOWER. 04/19: Resting in bed. On 5 L nasal cannula. Slightly dyspneic. 04/20: Resting in bed on nonrebreather facemask. Appears dyspneic. 04/21: On high flow O2/nonrebreather facemask. Family discussing hospice. Objective Vital Signs Date Time Temp Pulse Resp B/P (MAP) Pulse Ox O2 Delivery O2 Flow Rate FiO2 04/21/17 12:00 104 04/21/17 08:00 98.2 25 87/50 (62) 89 04/21/17 06:18 High Flow Nasal Cannula 25.00 50 Result Diagram: 04/19/17 0800 04/21/17 0634 Imaging Last 24 hours Impressions Chest X-Ray 04/15/17 1649 Signed Impressions: Service Date/Time: March 17:31 - CONCLUSION: Diffuse interstitial opacity with differential diagnosis of chronic interstitial lung disease and pulmonary edema. Superimposed left lower lobe consolidation and small left pleural effusion. Chung Mai MD Objective Remarks HEENT/Neuro: No icterus, pallor present tongue moist, JASPAL, Awake alert, nonfocal grossly, moving all 4 extremities Neck: No JVD Chest/pulmonary: Good air entry bilaterally, scattered rhonchi and crackles, no wheezing, using accessory muscles of respiration. Appears dyspneic Cardiovascular: S1-S2 regular no gallop or murmur GI/abdomen: Soft, nontender, bowel sounds present Extremities: Warm bilaterally, no edema A/P Assessment and Plan Respiratory failure - Patient on nonrebreather facemask, high flow O2 - Pulmonary fibrosis as a underlying condition. Continue steroids and bronchodilators - Pneumonia - Broad-spectrum antibiotics. On is azithromycin/Zosyn/vancomycin IV - De-escalate per sensitivity - Sputum blood urine cultures and antigens - Consulted pulmonary for further evaluation - Dr. Zurita following Hypertension - Currently normotensive - Resume home meds DVT GI prophylaxis - Teds SCDs - Subcutaneous heparin - Omeprazole Palliative care consulted to assist with deciding goals of therapy. Patient's family has made her DNR status and would not want intubation. They wish to continue other medical therapy. Prognosis appears poor. Patient would be an appropriate candidate for hospice. Family considering transitioning to full comfort measures and hospice Pablito Shearer MD Apr 21, 2017 15:36
[2017-04-21] MEDS: SODIUM CHLORIDE 0.9% FLUSH 10 ML FLUSH IV FLUSH SCH (21:20)
[2017-04-22] MEDS: MORPHINE SULFATE 4 MG/ML INJ IV PUSH SCH ×5 (01:05→22:25)
[2017-04-22] MEDS: LORazepam 2 MG/ML VIAL IV PUSH SCH ×5 (01:05→20:00)
[2017-04-22] MEDS: methylPREDNISolone SOD SUCC 40 MG/1 ML VIAL IV PUSH SCH (08:00)
[2017-04-22 08:30] VITALS: O2SAT 92
[2017-04-22 08:45] VITALS: BP 108/56; PULSE 100; RESP 30; TEMP 100.3; O2SAT 92
[2017-04-22] MEDS: SODIUM CHLORIDE 0.9% FLUSH 10 ML FLUSH IV FLUSH SCH ×2 (08:47→22:23)
[2017-04-22] MEDS: AZITHROMYCIN 250 MG TAB PO SCH (08:48)
[2017-04-22] MEDS ORDERED: LORazepam 2 MG/ML VIAL IV PRN (12:30)
--- NOTE | 2017-04-22 13:22 | HHI.HCPN ---
Reason for visit a. To assist with evaluation and management of symptoms including: Dyspnea, anxiety b. To assist medical decision maker(s) with: better understanding of current medical conditions; weighing benefits/burdens of medical treatment options; making medical treatment decisions. . (Becka Mcmahon) Subjective/Interval History INPATIENT HOSPICE: Mrs. Tom is a 76-year-old female with a medical history significant for end- stage pulmonary fibrosis, hypertension and gastritis. Patient was admitted on secondary to hypoxemic respiratory failure and pneumonia. Patient's overall prognosis is poor given end-stage pulmonary fibrosis, pneumonia, advanced age and profound physical deconditioning. Patient currently under hospices services/inpatient. Patient seen in medical ICU. Unresponsive to verbal or tactile stimuli, remains on nonrebreather mask at 15L/100% as per family is request. Oxygen saturation stable in the low 90s. Max temp 100.3, stable hemodynamically. Patient on xzhhpu-nfv-juyef morphine 2 mg and lorazepam 0.5 mg every 6 hours. Morphine and lorazepam available as needed, patient has received 1 dose of lorazepam 1 mg overnight and 2 doses of morphine 2 mg for shortness of breath and anxiety. Patient appears actively dying at this time, no signs of pain or discomfort noted. Bedside conversation with patient's children and additional family members. No event executive used or needed as palliative care provider Jabari Mcmahon speaks fluent in [place]. Dr. Rodríguez provided medical update, interpreted by Jabari Mcmahon. Discussed patient's illness trajectory and terminal condition. Discussed prognosis of hours to a few days if illness run its natural course. Discussed risks, benefits and limitations of IV hydration. Contraindicated given her condition, may exacerbate respiratory symptoms. Discussed weaning off oxygen, family requesting to keep oxygen at 15L at this time. Discussed illness trajectory progressive desaturation despite off oxygen support. Family verbalized understanding and reiterated comfort directed goals. Case discussed with bedside ALEJANDRA Fitzgerald, Dr. Shearer and Dr. Rodríguez. . Family/friend interactions See interval note. . (Becka Mcmahon) Advance Directives Living Will: Never completed Health Care Surrogate: Copy in medical record Durable Power of Software Client Architect: Never completed (Becka Mcmahon) Advance Directive Specifics Date completed: 04/19/17. . Health Care Surrogate(s): Patient elected daughter Adriana Tom as her healthcare surrogate. . Significant change in goals: Comfort directed goal under hospice. . (Becka Mcmahon) Objective Vital Signs Date Time Temp Pulse Resp B/P (MAP) Pulse Ox O2 Delivery O2 Flow Rate FiO2 04/22/17 11:23 28 04/22/17 08:45 100.3 100 30 108/56 (73) 92 04/22/17 08:30 92 High Flow Nasal Cannula 15.00 04/21/17 21:26 16 Physical Exam CONSTITUTIONAL/GENERAL: This is an elderly, weak patient no acute distress. Unresponsive to verbal or tactile stimuli. TUBES/LINES/DRAINS: NRB mask, IV SKIN: No jaundice, rashes, or lesions. Ecchymoses on upper extremities. No wounds seen anteriorly. Skin temperature appropriate. Not diaphoretic. HEAD: Atraumatic. Normocephalic. EYES: Pupils equal and round and reactive. No scleral icterus. No injection or drainage. Fundi not examined. ENT: Hard of hearing. Nose without bleeding or purulent drainage. Moist oral mucosa. Dry lips. NECK: Trachea midline. Supple, nontender. CARDIOVASCULAR: Tachycardic with heart rate in the low 100s. Now Murmurs, gallops, or rubs. No JVD. Peripheral pulses symmetric. RESPIRATORY/CHEST: Symmetric, unlabored respirations. Diminished breath sounds , diffusely scattered rales. GASTROINTESTINAL: Abdomen soft, nondistended. Bowel sounds present. GENITOURINARY: Without palpable bladder distension. MUSCULOSKELETAL: Extremities without clubbing, cyanosis, or edema. No mottling or clubbing. NEUROLOGICAL: Unresponsive to verbal or tactile stimuli. PSYCHIATRIC: Unable to assess given clinical condition. Appears calm. . (Becka Mcmahon) Diagnostic Tests Laboratory Laboratory Tests Test 04/20/17 01:02 04/20/17 22:45 04/21/17 06:34 Potassium Level 3.8 MEQ/L (3.5-5.1) Vancomycin Level Trough 16.5 MCG/ML (5.0-10.0) Creatinine 0.39 MG/DL (0.50-1.00) Estimat Glomerular Filtration Rate 160 ML/MIN (>89) (Becka Mcmahon) Result Diagram: 04/19/17 0800 04/21/17 0634 Assessment and Plan Disease Oriented Problem List: (1) hypoxic respiratory failure (2) pulmonary fibrosis (3) pneumonia (4) anxiety, history of panic attacks (5) hypertension (6) gastritis Symptom Scale: (1) dyspnea 0-10 Scale: Unable to quantify Comment: Secondary to pulmonary fibrosis, pneumonia. Worsening, currently on nonrebreather mask at 15 L. (2) anxiety 0-10 Scale: Unable to quantify Comment: Acute on chronic. Exacerbated by shortness of breath and pain. (3) Pain 0-10 Scale: Unable to quantify Comment: Pain to epigastric region. Pertinent Non-Medical Issues Psychosocial: but , 4 children, [place]ese-speaking. Patient originally from [place]. Has been in [place] for the past 5 years. Spiritual: Religious. Legal: Designation of healthcare surrogate completed. Patient has designated her daughter Adriana as healthcare surrogate. Ethical issues impacting care: No ethical legal issues identified. . Important Contacts Healthcare surrogate daughter: Adriana Tom ([place] Sudanese-speaking only) -- > SHE DOES NOT HAVE A PHONE BUT CAN BE REACHED BY CALLING HER SISTER JULIET CHENG - [phone] Son: STEVEN Reed - [phone] (speaks some Uzbek) Grandson with same name STEVEN Reed [phone] (speaks good Uzbek) . Prognosis Mrs. Tom is a 76-year-old female with a medical history significant for end- stage pulmonary fibrosis, hypertension and gastritis. Patient was admitted on secondary to hypoxemic respiratory failure and pneumonia. Patient's overall prognosis is poor given advanced pulmonary fibrosis, pneumonia, advanced age and profound physical deconditioning. Patient appears hospice appropriate should patient/family elects comfort-directed care. . Code Status: No Code Plan * CODE STATUS: No code. DNR/DNI. * DECISION-MAKING: Patient is deferring discussions about goals of care to her daughter Adriana. Patient with a fair understanding of her clinical condition and overall poor prognosis. Designation of healthcare surrogate completed, patient designated her daughter Adriana Tom as HCS. Daughter has accepted this role. * GOALS OF CARE: Patient's family has elected comfort-directed care with hospice given very poor prognosis/end-stage pulmonary fibrosis and worsening clinical condition. Family requesting continuation of O2 at 15 L: May wean off/ titrate as tolerated by patient; However, NO IV antibiotics, NO IV fluids, NO Bipap, NO pressors, NO escalation of care. Patient under inpatient hospice care , unable to transferred out of the unit or to hospice care center given O2 requirements. * SYMPTOMS: =Dyspnea is her main problem secondary to pulmonary fibrosis, pna. Worsening condition, currently on nonrebreather mask at 15 L. patient currently on morphine 2 mg around the clock every 6 hours and morphine when necessary. Has received 2 doses in the past 24 hours. Appears comfortable. = Anxiety, acute on chronic. History of panic attacks. Exacerbated now by shortness of breath. Patient on lorazepam [id number]-[id number], lorazepam available as needed. Has received 1 extra dose in the past 24 hours. Appears comfortable. No further recommendations at this time. * Case discussed with Dr. Shearer, Dr. Rodríguez and bedside RN Lia. * Palliative care contact information has been provided to patient and family. * Palliative care will continue to follow-up for further clarifications of goals of care as patient's clinical condition continues to evolve. . (Becka Mcmahon) Time Spent Total Floor Time (mins): 47 (Total time to include review of medical records, physical exam, bedside conversation with patient's family, case discussion with Dr. Shearer, Dr. Rodríguez and bedside RN.) >50% Counseling/Coord of Care: Yes (Becka Mcmahon) Attestation To help prompt me to consider important information that might be impacting today's encounter and assessment, information from prior notes written by myself or my colleagues may have been "brought forward" into today's note. My signature on this note, however, is an attestation that I personally performed the exam, history, and/or decision-making noted today, and, unless otherwise indicated, the interactions with patient, family, and staff as well as the review of records all occurred today. I also attest that the listed assessment and stated plan reflect my best clinical judgment today based on the combination of historical information, prior notes, and today's exam/ interactions. When time spent is documented, it refers only to time spent today by the signer, or if indicated, combined time spent today by collaborating physician/nurse practitioner. (Becka Mcmahon) Collaborating MD Comments Chart reviewed. Case discussed with palliative care SPACE PLANNER. Above SPACE PLANNER note reviewed and I concur. . (Jackson Rodríguez MD) Becka Mcmahon Apr 22, 2017 13:22 Jackson Rodríguez MD Apr 25, 2017 18:26
[2017-04-22] MEDS ORDERED: BISACODYL 10 MG SUPP RECTAL PRN (14:15)
[2017-04-22] MEDS ORDERED: MORPHINE SULFATE 4 MG/ML INJ IV PUSH PRN (17:30)
[2017-04-22] MEDS ORDERED: MORPHINE SULFATE 8 MG/ML INJ IV PUSH PRN (17:30)
[2017-04-22 22:38] VITALS: O2SAT 86
[2017-04-23] VITALS (8 sets, daily range): BP systolic 35–109; BP diastolic 17–61; PULSE 107–207; RESP 9–12; TEMP 98.9–99.2; O2SAT 74–80
[2017-04-23] MEDS: MORPHINE SULFATE 4 MG/ML INJ IV PUSH SCH ×5 (04:00→17:02)
[2017-04-23] MEDS: LORazepam 2 MG/ML VIAL IV PUSH SCH ×3 (04:00→07:46)
[2017-04-23] MEDS: AZITHROMYCIN 250 MG TAB PO SCH (07:47)
[2017-04-23] MEDS: SODIUM CHLORIDE 0.9% FLUSH 10 ML FLUSH IV FLUSH SCH ×2 (09:00→20:49)
[2017-04-23] MEDS ORDERED: HALOPERIDOL LACTATE 5 MG/ML AMP IV PUSH SCH (11:15)
--- NOTE | 2017-04-23 11:38 | HHI.HCPN ---
Reason for visit a. To assist with evaluation and management of symptoms including: Dyspnea, anxiety b. To assist medical decision maker(s) with: better understanding of current medical conditions; weighing benefits/burdens of medical treatment options; making medical treatment decisions. . Subjective/Interval History INPATIENT HOSPICE: Mrs. Tom is a 76-year-old female with a medical history significant for end- stage pulmonary fibrosis, hypertension and gastritis. Patient was admitted on secondary to hypoxemic respiratory failure and pneumonia. Patient's overall prognosis is poor given end-stage pulmonary fibrosis, pneumonia, advanced age and profound physical deconditioning. Patient currently under hospices services/inpatient. Patient seen in medical ICU. Unresponsive to verbal or tactile stimuli, remains on nonrebreather mask at 15L/100% as per family is request. Oxygen saturation in the mid to low 70s. A febrile, hypotensive with SBP in the 70s. Patient with periods of tachycardia, heart rate in the mid 100s to low 200s. Patient on dxnvqx-sob-qfvhb morphine 4 mg and lorazepam 0.5 mg every 4 hours. Bedside conversation with patient's children and additional family members. No waste recycler used or needed as palliative care provider Jabari Mcmahon speaks fluent in [place]. Family has declined Ativan since last night, they report that patient has a history of adverse effect provoking tachycardia. Family was educated at length regarding signs and symptoms of end of life and symptom management. Patient actively dying with a life expectancy of hours to days if illness run its natural course. Family requesting for lorazepam to be discontinued. Discussed alternative medications for comfort/agitation to include Haldol. Family declining any other comfort medications besides oxygen and morphine. Case discussed with bedside ALEJANDRA Rogers and manager business development hospice Yoanna. . Family/friend interactions See interval note. . Advance Directives Living Will: Never completed Health Care Surrogate: Copy in medical record Durable Power of Fur Sorter: Never completed Advance Directive Specifics Date completed: 04/19/17. . Health Care Surrogate(s): Patient elected daughter Adriana Tom as her healthcare surrogate. . Significant change in goals: Goals of care remain unchanged, comfort-directed care with hospice. . Objective Vital Signs Date Time Temp Pulse Resp B/P (MAP) Pulse Ox O2 Delivery O2 Flow Rate FiO2 04/23/17 08:00 99.0 207 12 70/46 (54) 75 04/23/17 07:53 74 High Flow Nasal Cannula 100 04/23/17 07:50 98.9 207 12 70/46 (54) 75 04/23/17 04:00 98.9 128 12 107/61 (76) 75 04/23/17 01:21 High Flow Nasal Cannula 25.00 100 04/23/17 00:00 99.2 154 9 109/59 (76) 80 04/22/17 22:38 86 High Flow Nasal Cannula 25.00 100 04/22/17 16:46 14 Physical Exam CONSTITUTIONAL/GENERAL: This is an elderly, weak patient in moderate distress secondary to increased work of breathing, agonal breathing. Unresponsive to verbal or tactile stimuli. TUBES/LINES/DRAINS: NRB mask, IV SKIN: No jaundice, rashes, or lesions. Ecchymoses on upper extremities. No wounds seen anteriorly. Skin temperature appropriate. Not diaphoretic. HEAD: Atraumatic. Normocephalic. EYES: Pupils equal and round and reactive. No scleral icterus. No injection or drainage. Fundi not examined. ENT: Hard of hearing. Nose without bleeding or purulent drainage. Moist oral mucosa. Dry lips. NECK: Trachea midline. Supple, nontender. CARDIOVASCULAR: Tachycardic with heart rate in the mid 100's. Now Murmurs, gallops, or rubs. No JVD. Peripheral pulses symmetric. RESPIRATORY/CHEST: Symmetric, unlabored respirations. Diminished breath sounds , diffusely scattered rales. GASTROINTESTINAL: Abdomen soft, nondistended. Bowel sounds present. GENITOURINARY: Without palpable bladder distension. MUSCULOSKELETAL: Extremities without clubbing, cyanosis, or edema. No mottling or clubbing. NEUROLOGICAL: Unresponsive to verbal or tactile stimuli. PSYCHIATRIC: Unable to assess given clinical condition. . Diagnostic Tests Laboratory Laboratory Tests Test 04/20/17 22:45 04/21/17 06:34 Vancomycin Level Trough 16.5 MCG/ML (5.0-10.0) Creatinine 0.39 MG/DL (0.50-1.00) Estimat Glomerular Filtration Rate 160 ML/MIN (>89) Result Diagram: 04/19/17 0800 04/21/17 0634 Assessment and Plan Disease Oriented Problem List: (1) hypoxic respiratory failure (2) pulmonary fibrosis (3) pneumonia (4) anxiety, history of panic attacks (5) hypertension (6) gastritis Symptom Scale: (1) dyspnea 0-10 Scale: Unable to quantify Comment: Secondary to pulmonary fibrosis, pneumonia. Worsening, currently on nonrebreather mask at 15 L. (2) anxiety 0-10 Scale: Unable to quantify Comment: Acute on chronic. Exacerbated by shortness of breath and pain. (3) Pain 0-10 Scale: Unable to quantify Comment: Pain to epigastric region. Pertinent Non-Medical Issues Psychosocial: but , 4 children, [place]-speaking. Patient originally from [place]. Has been in [place] for the past 5 years. Spiritual: Methodist. Legal: Designation of healthcare surrogate completed. Patient has designated her daughter Adriana as healthcare surrogate. Ethical issues impacting care: No ethical legal issues identified. . Important Contacts Healthcare surrogate daughter: Adriana Tom (Citizen [place]-speaking only) -- > SHE DOES NOT HAVE A PHONE BUT CAN BE REACHED BY CALLING HER SISTER JULIET CHENG - [phone] Son: STEVEN Reed - [phone] (speaks some Austrian) Grandson with same name STEVEN Reed [phone] (speaks good Austrian) . Prognosis Mrs. Tom is a 76-year-old female with a medical history significant for end- stage pulmonary fibrosis, hypertension and gastritis. Patient was admitted on secondary to hypoxemic respiratory failure and pneumonia. Patient's overall prognosis is poor given advanced pulmonary fibrosis, pneumonia, advanced age and profound physical deconditioning. Patient appears hospice appropriate should patient/family elects comfort-directed care. . Code Status: No Code Plan * CODE STATUS: No code. DNR/DNI. * DECISION-MAKING: Patient is deferring discussions about goals of care to her daughter Adriana. Patient with a fair understanding of her clinical condition and overall poor prognosis. Designation of healthcare surrogate completed, patient designated her daughter Adriana Tom as HCS. Daughter has accepted this role. * GOALS OF CARE: Patient's family has elected comfort-directed care with hospice given very poor prognosis/end-stage pulmonary fibrosis and worsening clinical condition. Family requesting continuation of O2 at 15 L: May wean off/ titrate as tolerated by patient; However, NO IV antibiotics, NO IV fluids, NO Bipap, NO pressors, NO escalation of care. Patient under inpatient hospice care , unable to transferred out of the unit or to hospice care center given O2 requirements. * SYMPTOMS: =Dyspnea is her main problem secondary to pulmonary fibrosis, pna. Worsening condition, currently on nonrebreather mask at 15 L. Patient on eyhyhd-tbz-rqhwl morphine 4 mg and lorazepam 0.5 mg every 4 hours. = Anxiety, acute on chronic. History of panic attacks. Exacerbated now by shortness of breath. Patient on rzfwso-ejw-xznwz lorazepam as stated above. Family has declined Ativan since last night, they report that patient has a history of adverse effect provoking tachycardia. Family was educated at length regarding signs and symptoms of end of life and symptom management. Patient actively dying with a life expectancy of hours to days if illness run its natural course. Family requesting for lorazepam to be discontinued. Discussed alternative medications for comfort/agitation to include Haldol. Family declining any other comfort medications besides oxygen and morphine. * Case discussed with bedside RN Sue and manager business development hospice Yoanna. * Palliative care/Hospice contact information has been provided to patient and family. . Time Spent Total Floor Time (mins): 34 (Total time to include review of medical records, physical exam, medical update and goals of care conversation with patient's family, case discussion with bedside RN and manager business development hospice.) >50% Counseling/Coord of Care: Yes Attestation To help prompt me to consider important information that might be impacting today's encounter and assessment, information from prior notes written by myself or my colleagues may have been "brought forward" into today's note. My signature on this note, however, is an attestation that I personally performed the exam, history, and/or decision-making noted today, and, unless otherwise indicated, the interactions with patient, family, and staff as well as the review of records all occurred today. I also attest that the listed assessment and stated plan reflect my best clinical judgment today based on the combination of historical information, prior notes, and today's exam/ interactions. When time spent is documented, it refers only to time spent today by the signer, or if indicated, combined time spent today by collaborating physician/nurse practitioner. Becka Mcmahon Apr 23, 2017 11:38
[2017-04-23] MEDS ORDERED: MORPHINE SULFATE 4 MG/ML INJ IV PUSH PRN (17:30)
--- NOTE | 2017-04-23 17:39 | HHI.HCPN ---
Family has refused full 4mg of morphine ATC. They want 2 mg q 4 hours ATC. I have changed the orders to... * 2 mg q 4 hours ATC * 2-4 mg q 1 hour prn pain/sob. Jackson Rodríguez MD Apr 23, 2017 17:39
[2017-04-23] MEDS ORDERED: MORPHINE SULFATE 4 MG/ML INJ IV PRN (18:30)
[2017-04-23] MEDS ORDERED: MORPHINE SULFATE 4 MG/ML INJ IV PUSH SCH (20:00)
== END 2017-04-24 03:31 | disposition expired | DRG 189 ==
LOC: NEPC 16:47 → NEDA 19:57 → HIMN 21:35
PROVIDERS: ADMIT Family Medicine; ATTEND Family Medicine
DX: J96.91 Respiratory failure, unspecified with hypoxia (principal); J18.9 Pneumonia, unspecified organism; J84.10 Pulmonary fibrosis, unspecified; Z99.81 Dependence on supplemental oxygen; I10 Essential (primary) hypertension; Z66 Do not resuscitate; H91.90 Unspecified hearing loss, unspecified ear; F41.9 Anxiety disorder, unspecified
CPT/HCPCS: 36600; 71010; 71250; 76937; 80048; 80053; 80076; 80202; 82550; 82565; 82805; 83605; 83690; 83735; 84100; 84132; 84484; 85007; 85025; 85027; 85610; 85730; 87040; 87641; 93005; 94002; 94003; 94640; 94664; 96374; 96375; J0456; J0692; J1644; J1940; J2060; J2270; J2405; J2543; J2920; J2930; J3370; J3480; J7030; J7040; J7050; J7512; J7517